=== PATIENT | female | born 1980 | race Caucasian/White ===

== ENCOUNTER 2017-10-19 17:13 | Emergency (ER) | payer SELFPAY ==
[~2017-10-19] VITALS: Ht 160 cm; Wt 70.3 kg
--- OUTSIDE RECORDS SUMMARY | 2017-10-19 17:19 | XMS REPORT ---
Author NIKKI Ch [facility] eClinicalWorks Address Unknown Phone Unavailable Care Team Providers Care Digital Cartographic Technician Name Role Phone NIKKI MATOS CP Unavailable Allergies No Known Allergies Problems Problem Type Condition Code Onset Dates Condition Status Problem Vaginal high risk HPV DNA test positive R87.811 Active Problem Anxiety associated with depression F41.8 Active Problem Hyperlipemia E78.5 Active Problem Tension headache G44.209 Active Problem Chronic maxillary sinusitis J32.0 Active Problem Arachnoid cyst G93.0 Active Problem Migraine G43.909 Active Problem Tobacco use Z72.0 Active Problem PTSD (post-traumatic stress disorder) F43.10 Active Problem Bronchitis J40 Active Problem Overweight E66.3 Active Problem Tobacco abuse counseling Z71.6 Active Problem Tobacco abuse Z72.0 Active Problem Dysfunctional uterine bleeding N93.8 Active Problem High cholesterol E78.0 Active Problem Cough R05 Active Problem Cervical high risk HPV (human papillomavirus) test positive R87.810 Active Medications No Known Medications Results No Known Results Summary Purpose eClinicalWorks Submission
--- OUTSIDE RECORDS SUMMARY | 2017-10-19 17:19 | XMS REPORT ---
Author Author NIKKI MATOS [facility] Address [address] [place] [address] Care Team Providers Care Field Service Technician Name Role Phone NIKKI MATOS Unavailable PROBLEMS Type Condition ICD9-CM Code [id number] Code Onset Dates Condition Status SNOMED Code Problem Hyperlipemia E78.5 Active 43228933 Problem Tobacco use Z72.0 Active 192288140 Problem Anxiety associated with depression F41.8 Active 482400238 Problem Chronic maxillary sinusitis J32.0 Active 35294513 Problem Tension headache G44.209 Active 612642533 Problem Bronchitis J40 Active 38327260 Problem Migraine G43.909 Active 64389790 Problem Arachnoid cyst G93.0 Active 37756861 Problem PTSD (post-traumatic stress disorder) F43.10 Active 61910438 Problem Overweight E66.3 Active 872026289 Problem Dysfunctional uterine bleeding N93.8 Active 44692238 Problem Tobacco abuse Z72.0 Active 87095455 Problem High cholesterol E78.0 Active 74429003 Problem Tobacco abuse counseling Z71.6 Active 181193376 Problem Cervical high risk HPV (human papillomavirus) test positive R87.810 Active 670920806 Problem Cough R05 Active 39929589 Problem Vaginal high risk HPV DNA test positive R87.811 Active 306651606 ALLERGIES Substance Reaction Event Type Date Status N.K.D.A. Unknown Non Drug Allergy Oct, Unknown SOCIAL HISTORY No smoking Hx information available PLAN OF CARE Activity Details Follow Up prn Reason: VITAL SIGNS Height 64.5 in 2016-11-18 Weight 164.6 lbs 2016-11-18 Temperature 97.6 degrees Fahrenheit 2016-11-18 Heart Rate 81 bpm 2016-11-18 Respiratory Rate 17 2016-11-18 BMI 27.81 kg/m2 2016-11-18 Blood pressure systolic 108 mmHg 2016-11-18 Blood pressure diastolic 60 mmHg 2016-11-18 MEDICATIONS Medication Instructions Dosage Frequency Start Date End Date Duration Status Fioricet 50-300-40 MG Orally every 4 hrs as needed for headaches 1 capsule as needed Jun, Active Proventil HFA 108 (90 Base) MCG/ACT Inhalation every 4 hrs 2 puffs as needed 4h Oct, Active Depo-Provera 150 MG/ML Active Claritin 10 MG Orally Once a day 1 tablet 24h Active Prozac 40 MG Orally Once a day 1 capsule in the morning 24h Active Amitriptyline HCl 25 MG Orally Once a day- bedtime 1 tablet Dec, Active Ibuprofen 800 MG Orally up to three times daily 1 tablet Jan, Active Simvastatin 40 mg Orally Once a day 1 tablet in the evening 24h Oct, Active RESULTS Name Result Date Reference Range INFLUENZA A & B (IN HOUSE) INFLUENZA A neg INFLUENZA B neg Control + Lot # [id number] Exp date 03/2018 PROCEDURES Procedure Date Ordered Related Diagnosis Body Site INFLUENZA ASSAY W/OPTIC Nov 18, 2016 Office Visit, Est Pt., Level 3 Nov 18, 2016 IMMUNIZATIONS No Known Immunizations
--- OUTSIDE RECORDS SUMMARY | 2017-10-19 17:19 | XMS REPORT ---
Author NIKKI Ch [facility] eClinicalWorks Address Unknown Phone Unavailable Care Team Providers Care Paragliding Instructor Name Role Phone NIKKI MATOS CP Unavailable Allergies, Adverse Reactions, Alerts Substance Reaction Event Type N.K.D.A. Info Not Available Non Drug Allergy Problems Problem Type Condition Code Onset Dates Condition Status Problem Overweight E66.3 Active Assessment Dysfunctional uterine bleeding N93.8 Active Problem Dysfunctional uterine bleeding N93.8 Active Assessment Overweight E66.3 Active Medications Medication Code System Code Instructions Start Date End Date Status Dosage Depo-Provera [facility] [address]-37 150 MG/ML Intramuscular every 3 months Sep 13, 2015 1 ml Procedures Procedure Coding System Code Date Office Visit, Est Pt., Level 3 CPT-4 60782 Sep 11, 2015 Vital Signs Date/Time: Sep 11, 2015 Temperature 98.1 F Weight 171.3 lbs Height 64.5 in BMI 28.95 Index Blood Pressure Diastolic 82 mmHg Blood Pressure Systolic 110 mmHg Cardiac Monitoring Heart Rate 85 bpm Results No Known Results Summary Purpose eClinicalWorks Submission
--- OUTSIDE RECORDS SUMMARY | 2017-10-19 17:19 | XMS REPORT ---
Author ZEESHAN Spicer Organization eClinicalWorks Address Unknown Phone Unavailable Care Team Providers Care Wood Box Maker Name Role Phone ZEESHAN SCHMID CP Unavailable Allergies, Adverse Reactions, Alerts Substance Reaction Event Type N.K.D.A. Info Not Available Non Drug Allergy Problems Problem Type Condition Code Onset Dates Condition Status Problem Overweight E66.3 Active Assessment Back pain M54.9 Active Problem Dysfunctional uterine bleeding N93.8 Active Assessment Cough R05 Active Assessment Tobacco dependence F17.200 Active Medications Medication Code System Code Instructions Start Date End Date Status Dosage Azithromycin [facility] [address]-25 250 MG Orally Once a day Nov 10, 2015 Nov 15, 2015 2 tablets on the first day, then 1 tablet daily for 4 days Procedures Procedure Coding System Code Date Office Visit, Est Pt., Level 3 CPT-4 17015 Nov 10, 2015 Vital Signs Date/Time: Nov 10, 2015 Temperature 98.5 F Weight 169.0 lbs Height 64.5 in BMI 28.56 Index Blood Pressure Diastolic 88 mmHg Blood Pressure Systolic 122 mmHg Cardiac Monitoring Heart Rate 103 bpm Results No Known Results Summary Purpose eClinicalWorks Submission
--- OUTSIDE RECORDS SUMMARY | 2017-10-19 17:19 | XMS REPORT ---
Author Author PEDRO GRAHAM Organization eClinicalWorks Address Unknown Phone Unavailable Care Team Providers Care Compounding Scaler Name Role Phone PEDRO GRAHAM CP Unavailable Allergies No Known Allergies Problems Problem Type Condition Code Onset Dates Condition Status Problem Tobacco abuse Z72.0 Active Problem Tobacco abuse counseling Z71.6 Active Problem High cholesterol E78.0 Active Problem Overweight E66.3 Active Problem Cough R05 Active Problem Dysfunctional uterine bleeding N93.8 Active Medications No Known Medications Results No Known Results Summary Purpose eClinicalWorks Submission
--- OUTSIDE RECORDS SUMMARY | 2017-10-19 17:19 | XMS REPORT ---
Author NIKKI Ch eClinicalWorks Address Unknown Phone Unavailable Care Team Providers Care Die Out Worker Name Role Phone NIKKI MATOS CP Unavailable Allergies, Adverse Reactions, Alerts Substance Reaction Event Type N.K.D.A. Info Not Available Non Drug Allergy Problems Problem Type Condition Code Onset Dates Condition Status Problem Tobacco abuse counseling Z71.6 Active Problem High cholesterol E78.0 Active Problem Tobacco abuse Z72.0 Active Problem Migraine G43.909 Active Problem Tobacco use Z72.0 Active Problem Bronchitis J40 Active Problem Vaginal high risk HPV DNA test positive R87.811 Active Problem Cervical high risk HPV (human papillomavirus) test positive R87.810 Active Problem Anxiety associated with depression F41.8 Active Problem Hyperlipemia E78.5 Active Assessment Migraine G43.909 Active Problem Overweight E66.3 Active Problem Dysfunctional uterine bleeding N93.8 Active Assessment Adverse effect of caffeine T43.615A Active Problem Cough R05 Active Medications Medication Code System Code Instructions Start Date End Date Status Dosage Ibuprofen [facility] [address]-15 800 MG Orally up to three times daily January 1 tablet Paradise Allergy [facility] [address]99 180 MG Orally not defined Amitriptyline HCl [facility] [address]-22 25 MG Orally Once a day- bedtime January 05, 2016 1 tablet Simvastatin [facility] [address]-02 40 MG Orally Once a day Nov 24, 2015 1 tablet in the evening Prozac [facility] [address]-99 20 mg Orally Once a day 1 capsule in the morning Proventil HFA [facility] [address]-32 108 (90 Base) MCG/ACT Inhalation every 4 hrs Nov 18, 2015 2 puffs as needed Procedures Procedure Coding System Code Date THER/PROPH/DIAG INJ, SC/IM CPT-4 18940 February 08, 2016 Office Visit, Est Pt., Level 3 CPT-4 73049 February 08, 2016 TORADOL (IM) 15 MG/ML (UP TO 15 MG) CPT-4 J1885 February 08, 2016 Vital Signs Date/Time: February 08, 2016 Temperature 98.0 F Weight 173.2 lbs Height 64.5 in BMI 29.27 Index Blood Pressure Diastolic 60 mmHg Blood Pressure Systolic 118 mmHg Cardiac Monitoring Heart Rate 72 bpm Results No Known Results Summary Purpose eClinicalWorks Submission
--- OUTSIDE RECORDS SUMMARY | 2017-10-19 17:19 | XMS REPORT ---
Author [facility] Address [address] [place] [address] Care Team Providers Care Box Maker Name Role Phone MALKA AMOS Unavailable PROBLEMS Type Condition ICD9-CM Code [id number] Code Onset Dates Condition Status SNOMED Code Problem Tobacco abuse Z72.0 Active 48336163 Problem Cervical high risk HPV (human papillomavirus) test positive R87.810 Active 609997797 Problem High cholesterol E78.0 Active 37570470 Problem Bronchitis J40 Active 99349328 Problem Migraine G43.909 Active 51471827 Problem Hyperlipemia E78.5 Active 37233641 Problem Vaginal high risk HPV DNA test positive R87.811 Active 387497489 Problem Tobacco use Z72.0 Active 038211938 Problem Anxiety associated with depression F41.8 Active 469317691 Problem Overweight E66.3 Active 980318688 Problem Dysfunctional uterine bleeding N93.8 Active 52473551 Problem Cough R05 Active 55581713 Assessment Migraine without aura and with status migrainosus, not intractable G43.001 Jun, Active 900241405 Problem Tobacco abuse counseling Z71.6 Active 719396804 ALLERGIES Substance Reaction Event Type Date Status N.K.D.A. Unknown Non Drug Allergy Jun, Unknown SOCIAL HISTORY No smoking Hx information available PLAN OF CARE VITAL SIGNS Height 64.5 in 2016-07-04 Weight 168.1 lbs 2016-07-04 Heart Rate 75 bpm 2016-07-04 Respiratory Rate 16 2016-07-04 BMI 28.41 kg/m2 2016-07-04 Blood pressure systolic 122 mmHg 2016-07-04 Blood pressure diastolic 70 mmHg 2016-07-04 MEDICATIONS Medication Instructions Dosage Frequency Start Date End Date Duration Status Amitriptyline HCl 25 MG Orally Once a day- bedtime 1 tablet Dec, Active Prozac 20 mg Orally Once a day 1 capsule in the morning 24h Active Fioricet 50-300-40 MG Orally every 4 hrs as needed for headaches 1 capsule as needed Jun, Active Simvastatin 40 mg Orally Once a day 1 tablet in the evening 24h Oct, Active Zomig 5 mg Orally Once a day- do not exceed 10mg in 24hours 1 tablet as needed one time Dec, Active Proventil HFA 108 (90 Base) MCG/ACT Inhalation every 4 hrs 2 puffs as needed 4h Oct, Active Paradise Allergy 180 MG Active Ibuprofen 800 MG Orally up to three times daily 1 tablet Jan, Active RESULTS No Results PROCEDURES Procedure Date Ordered Related Diagnosis Body Site Office Visit, Est Pt., Level 3 Jul 04, 2016 PHENERGAN (IM) 25 MG (25 MG/ML) Jul 04, 2016 TORADOL (IM) 60 MG/2ML (UP TO 15 MG) Jul 04, 2016 THER/PROPH/DIAG INJ, SC/IM Jul 04, 2016 IMMUNIZATIONS Vaccine Route Administration Date Status TORADOL (IM) 60 MG/2ML (UP TO 15 MG) IM Intramuscular Jul 04, 2016 Administered PHENERGAN (IM) 25 MG (25 MG/ML) IM Intramuscular Jul 04, 2016 Administered
--- OUTSIDE RECORDS SUMMARY | 2017-10-19 17:19 | XMS REPORT ---
Author Author NIKKI MATOS [facility] Address [address] [place] [address] Care Team Providers Care Financial Reserve Clerk Name Role Phone NIKKI MATOS Unavailable PROBLEMS Type Condition ICD9-CM Code [id number] Code Onset Dates Condition Status SNOMED Code Problem Hyperlipemia E78.5 Active 46890595 Problem Tobacco use Z72.0 Active 913200432 Problem Anxiety associated with depression F41.8 Active 257303187 Problem Arachnoid cyst G93.0 Active 41384770 Problem Tension headache G44.209 Active 554911186 Problem Bronchitis J40 Active 37315126 Problem Migraine G43.909 Active 65268090 Problem Chronic maxillary sinusitis J32.0 Active 82973346 Problem PTSD (post-traumatic stress disorder) F43.10 Active 21438915 Problem Overweight E66.3 Active 119808851 Problem Dysfunctional uterine bleeding N93.8 Active 06357870 Problem Tobacco abuse Z72.0 Active 82014062 Problem High cholesterol E78.0 Active 72603168 Problem Cough R05 Active 28096299 Problem Cervical high risk HPV (human papillomavirus) test positive R87.810 Active 366263162 Problem Tobacco abuse counseling Z71.6 Active 966613674 Problem Vaginal high risk HPV DNA test positive R87.811 Active 281125184 ALLERGIES Unknown Allergies SOCIAL HISTORY No smoking Hx information available PLAN OF CARE VITAL SIGNS MEDICATIONS Unknown Medications RESULTS No Results PROCEDURES No Known procedures IMMUNIZATIONS No Known Immunizations
--- OUTSIDE RECORDS SUMMARY | 2017-10-19 17:20 | XMS REPORT ---
Author ZEESHAN Spicer Organization eClinicalWorks Address Unknown Phone Unavailable Care Team Providers Care Sales Representative Jewelry Name Role Phone ZEESHAN SCHMID CP Unavailable Allergies No Known Allergies Problems Problem Type Condition Code Onset Dates Condition Status Assessment Dysfunctional uterine bleeding N93.8 Active Medications No Known Medications Procedures Procedure Coding System Code Date VENIPUNCT, ROUTINE* CPT-4 65832 Aug 15, 2015 COMPLETE CBC W/AUTO DIFF WBC CPT-4 54771 Aug 15, 2015 Results Name Result Date Reference Range Unit Abnormality Flag CBC Summary Purpose eClinicalWorks Submission
--- OUTSIDE RECORDS SUMMARY | 2017-10-19 17:20 | XMS REPORT ---
Author NIKKI Ch eClinicalWorks Address Unknown Phone Unavailable Care Team Providers Care Fabricator Special Items Name Role Phone NIKKI MATOS CP Unavailable Allergies, Adverse Reactions, Alerts Substance Reaction Event Type N.K.D.A. Info Not Available Non Drug Allergy Problems Problem Type Condition Code Onset Dates Condition Status Problem Vaginal high risk HPV DNA test positive R87.811 Active Problem Anxiety associated with depression F41.8 Active Problem Hyperlipemia E78.5 Active Problem Tension headache G44.209 Active Assessment Tension headache G44.209 Active Problem Chronic maxillary sinusitis J32.0 Active Assessment Chronic maxillary sinusitis J32.0 Active Problem Arachnoid cyst G93.0 Active Problem Migraine G43.909 Active Problem Tobacco use Z72.0 Active Problem PTSD (post-traumatic stress disorder) F43.10 Active Problem Bronchitis J40 Active Assessment Anxiety associated with depression F41.8 Active Problem Overweight E66.3 Active Assessment Arachnoid cyst G93.0 Active Assessment Hyperlipemia E78.5 Active Problem Tobacco abuse counseling Z71.6 Active Problem Tobacco abuse Z72.0 Active Problem Dysfunctional uterine bleeding N93.8 Active Problem High cholesterol E78.0 Active Problem Cough R05 Active Problem Cervical high risk HPV (human papillomavirus) test positive R87.810 Active Medications Medication Code System Code Instructions Start Date End Date Status Dosage Claritin [facility] [address]-67 10 MG Orally Once a day 1 tablet Fioricet [facility] [address]-76 50-300-40 MG Orally every 4 hrs as needed for headaches Jul 04, 2016 1 capsule as needed Prozac [facility] [address]-73 20 mg Orally Once a day 1 capsule in the morning Ibuprofen [facility] [address]-41 800 MG Orally up to three times daily January 1 tablet Amitriptyline HCl [facility] [address]-33 25 MG Orally Once a day- bedtime January 05, 2016 1 tablet Imitrex [facility] [address]-47 100 MG Orally take one tablet for severe migraine , may repeat x1 in an hour Sep 03, 2016 1 tablet Simvastatin [facility] [address]-16 40 mg Orally Once a day Nov 24, 2015 1 tablet in the evening Proventil HFA [facility] [address]-44 108 (90 Base) MCG/ACT Inhalation every 4 hrs Nov 18, 2015 2 puffs as needed Augmentin [facility] [address]-37 875-125 MG Orally every 12 hrs Sep 03, 2016 Sep 13, 2016 1 tablet Procedures Procedure Coding System Code Date Office Visit, Est Pt., Level 4 CPT-4 70784 Sep 03, 2016 Vital Signs Date/Time: Sep 03, 2016 Cardiac Monitoring Heart Rate 88 bpm Weight 160.6 lbs Height 64.5 in BMI 27.14 Index Blood Pressure Diastolic 70 mmHg Blood Pressure Systolic 110 mmHg Results No Known Results Summary Purpose eClinicalWorks Submission
--- OUTSIDE RECORDS SUMMARY | 2017-10-19 17:20 | XMS REPORT ---
Author ZEESHAN Spicer Organization eClinicalWorks Address Unknown Phone Unavailable Care Team Providers Care Bottom Precipitator Operator Name Role Phone ZEESHAN SCHMID CP Unavailable Allergies, Adverse Reactions, Alerts Substance Reaction Event Type N.K.D.A. Info Not Available Non Drug Allergy Problems Problem Type Condition Code Onset Dates Condition Status Assessment Dysfunctional uterine bleeding N93.8 Active Assessment Pelvic pain in female R10.2 Active Medications Medication Code System Code Instructions Start Date End Date Status Dosage Provera [facility] [address]-54 20 mg Orally Once a day Aug 11, 2015 Aug 16, 2015 1 tablet Procedures Procedure Coding System Code Date Office Visit, Est Pt., Level 3 CPT-4 19052 Aug 11, 2015 Vital Signs Date/Time: Aug 11, 2015 Temperature 98.7 F Weight 169.1 lbs Height 64.5 in BMI 28.57 Index Blood Pressure Diastolic 84 mmHg Blood Pressure Systolic 118 mmHg Cardiac Monitoring Heart Rate 83 bpm Results No Known Results Summary Purpose eClinicalWorks Submission
--- OUTSIDE RECORDS SUMMARY | 2017-10-19 17:20 | XMS REPORT ---
Author NIKKI Ch Organization eClinicalWorks Address Unknown Phone Unavailable Care Team Providers Care Rn Neonatal Name Role Phone NIKKI MATOS CP Unavailable Allergies No Known Allergies Problems Problem Type Condition Code Onset Dates Condition Status Problem Tobacco abuse Z72.0 Active Problem Tobacco abuse counseling Z71.6 Active Problem High cholesterol E78.0 Active Problem Overweight E66.3 Active Assessment High cholesterol E78.0 Active Problem Cough R05 Active Problem Dysfunctional uterine bleeding N93.8 Active Medications Medication Code System Code Instructions Start Date End Date Status Dosage Simvastatin [facility] [address]-55 40 MG Orally Once a day Nov 24, 2015 1 tablet in the evening Results No Known Results Summary Purpose eClinicalWorks Submission
--- OUTSIDE RECORDS SUMMARY | 2017-10-19 17:20 | XMS REPORT ---
Author NIKKI Ch [facility] eClinicalWorks Address Unknown Phone Unavailable Care Team Providers Care Speeder Machine Operator Name Role Phone NIKKI MATOS CP Unavailable [...] F43.10 Active Problem Bronchitis J40 Active Assessment Migraine G43.909 Active Problem Overweight E66.3 Active Assessment Arachnoid cyst G93.0 Active Problem Tobacco abuse counseling Z71.6 Active Problem Tobacco abuse Z72.0 Active Problem Dysfunctional uterine bleeding N93.8 Active Problem High cholesterol E78.0 Active Problem Cough R05 Active Problem Cervical high risk HPV (human papillomavirus) test positive R87.810 Active Medications No Known Medications Results No Known Results Summary Purpose eClinicalWorks Submission
--- OUTSIDE RECORDS SUMMARY | 2017-10-19 17:20 | XMS REPORT ---
Author Author NIKKI MATOS [facility] Address [address] [place] [address] Care Team Providers Care Gray Mixing Operator Name Role Phone NIKKI MATOS Unavailable PROBLEMS Type Condition ICD9-CM Code [id number] Code Onset Dates Condition Status SNOMED Code Problem Hyperlipemia E78.5 Active 03964214 Problem Tobacco use Z72.0 Active 473098058 Problem Anxiety associated with depression F41.8 Active 151530605 Problem Arachnoid cyst G93.0 Active 29425849 Problem Tension headache G44.209 Active 936266979 Problem Bronchitis J40 Active 93664000 Problem Migraine G43.909 Active 13558495 Problem Chronic maxillary sinusitis J32.0 Active 79994427 Problem PTSD (post-traumatic stress disorder) F43.10 Active 30003900 Problem Overweight E66.3 Active 704882598 Problem Dysfunctional uterine bleeding N93.8 Active 97242728 Problem Tobacco abuse Z72.0 Active 78867379 Problem High cholesterol E78.0 Active 27137726 Problem Cough R05 Active 34897609 Problem Cervical high risk HPV (human papillomavirus) test positive R87.810 Active 920383956 Problem Tobacco abuse counseling Z71.6 Active 239332526 Problem Vaginal high risk HPV DNA test positive R87.811 Active 288821827 ALLERGIES Unknown Allergies SOCIAL HISTORY No smoking Hx information available PLAN OF CARE VITAL SIGNS MEDICATIONS Unknown Medications RESULTS No Results PROCEDURES No Known procedures IMMUNIZATIONS No Known Immunizations
--- OUTSIDE RECORDS SUMMARY | 2017-10-19 17:20 | XMS REPORT ---
Author NIKKI Ch eClinicalWorks Address Unknown Phone Unavailable Care Team Providers Care Route Agent Name Role Phone NIKKI MATOS CP Unavailable [...] F41.8 Active Problem Hyperlipemia E78.5 Active Assessment Urinary tract infection, site unspecified N39.0 Active Problem Overweight E66.3 Active Problem Dysfunctional uterine bleeding N93.8 Active Assessment Lung nodule seen on imaging study R91.1 Active Problem Cough R05 Active Medications Medication Code System Code Instructions Start Date End Date Status Dosage Ibuprofen [facility] [address]-02 800 MG Orally up to three times daily January 1 tablet Simvastatin [facility] [address]-49 40 mg Orally Once a day Nov 24, 2015 1 tablet in the evening Prozac [facility] [address]-52 20 mg Orally Once a day 1 capsule in the morning Amitriptyline HCl [facility] [address]-35 25 MG Orally Once a day- bedtime January 05, 2016 1 tablet Bactrim DS [facility] [address]-91 800-160 MG Orally Twice a day May 20, 2016 May 30, 2016 1 tablet Procedures Procedure Coding System Code Date URINALYSIS, AUTO, W/O SCOPE CPT-4 43645 May 20, 2016 Office Visit, Est Pt., Level 3 CPT-4 86391 May 20, 2016 URINE CULTURE/COLONY COUNT CPT-4 92958 May 20, 2016 Vital Signs Date/Time: May 20, 2016 Cardiac Monitoring Heart Rate 63 bpm Weight 168.5 lbs Height 64.5 in Blood Pressure Diastolic 78 mmHg Blood Pressure Systolic 118 mmHg Results No Known Results Summary Purpose eClinicalWorks Submission
--- OUTSIDE RECORDS SUMMARY | 2017-10-19 17:20 | XMS REPORT ---
Author NIKKI Ch [facility] eClinicalWorks Address Unknown Phone Unavailable Care Team Providers Care Metallography Teacher Name Role Phone NIKKI MATOS CP Unavailable Allergies, Adverse Reactions, Alerts Substance Reaction Event Type N.K.D.A. Info Not Available Non Drug Allergy Problems Problem Type Condition Code Onset Dates Condition Status Assessment Tobacco abuse counseling Z71.6 Active Problem Tobacco abuse counseling Z71.6 Active Problem Cough R05 Active Problem Tobacco abuse Z72.0 Active Assessment Cough R05 Active Assessment Tobacco abuse Z72.0 Active Problem Dysfunctional uterine bleeding N93.8 Active Problem Overweight E66.3 Active Medications Medication Code System Code Instructions Start Date End Date Status Dosage Tesnatan Aviles [facility] [address]-52 100 MG Orally Three times a day Nov 18, 2015 Nov 25, 2015 1 capsule as needed [facility] [address]66 180 MG Orally not defined Proventil HFA [facility] [address]-29 108 (90 Base) MCG/ACT Inhalation every 4 hrs Nov 18, 2015 2 puffs as needed Procedures Procedure Coding System Code Date Office Visit, Est Pt., Level 3 CPT-4 22424 Nov 18, 2015 MEASURE BLOOD OXYGEN LEVEL CPT-4 19105 Nov 18, 2015 Vital Signs Date/Time: Nov 18, 2015 Temperature 98.6 F Weight 172.0 lbs Height 64.5 in Oximetry 99 % Blood Pressure Diastolic 86 mmHg Blood Pressure Systolic 110 mmHg Cardiac Monitoring Heart Rate 88 bpm BMI 29.06 Index Results No Known Results Summary Purpose eClinicalWorks Submission
--- OUTSIDE RECORDS SUMMARY | 2017-10-19 17:20 | XMS REPORT ---
Author Author NIKKI MATOS [facility] Address [address] [place] [address] Care Team Providers Care Weigh Boss Name Role Phone NIKKI MATOS Unavailable PROBLEMS Type Condition ICD9-CM Code LTG90-TZ Code Onset Dates Condition Status SNOMED Code Problem Hyperlipemia E78.5 Active 71517868 Problem Tobacco use Z72.0 Active 872393212 Problem Anxiety associated with depression F41.8 Active 946861433 Problem Arachnoid cyst G93.0 Active 97911060 Problem Tension headache G44.209 Active 185047572 Problem Bronchitis J40 Active 66655308 Problem Migraine G43.909 Active 84892971 Problem Chronic maxillary sinusitis J32.0 Active 10946007 Problem PTSD (post-traumatic stress disorder) F43.10 Active 88924040 Problem Overweight E66.3 Active 754778374 Problem Dysfunctional uterine bleeding N93.8 Active 76384561 Problem Tobacco abuse Z72.0 Active 61688943 Problem High cholesterol E78.0 Active 71852610 Problem Cough R05 Active 85711017 Problem Cervical high risk HPV (human papillomavirus) test positive R87.810 Active 566585414 Problem Tobacco abuse counseling Z71.6 Active 431955938 Problem Vaginal high risk HPV DNA test positive R87.811 Active 276864772 ALLERGIES Unknown Allergies SOCIAL HISTORY No smoking Hx information available PLAN OF CARE VITAL SIGNS MEDICATIONS Unknown Medications RESULTS No Results PROCEDURES No Known procedures IMMUNIZATIONS No Known Immunizations
--- OUTSIDE RECORDS SUMMARY | 2017-10-19 17:20 | XMS REPORT ---
Author Author PEDRO GRAHAM Organization eClinicalWorks Address Unknown Phone Unavailable Care Team Providers Care Structural Fitter Name Role Phone PEDRO GRAHAM CP Unavailable Allergies, Adverse Reactions, Alerts Substance Reaction Event Type N.K.D.A. Info Not Available Non Drug Allergy Problems Problem Type Condition ICD-9 Code Onset Dates Condition Status Assessment Abdominal pain 789.00 Active Medications Medication Code System Code Instructions Start Date End Date Status Dosage Cyclobenzaprine HCl [facility] [address]-76 10 MG Orally 3 times a day Jul 19, 2015 Jul 29, 2015 1 tablet Procedures Procedure Coding System Code Date Office Visit, Est Pt., Level 3 CPT-4 47933 Jul 19, 2015 Vital Signs Date/Time: Jul 19, 2015 Temperature 98.6 F Weight 167.6 lbs Height 64.5 in BMI 28.32 Index Blood Pressure Diastolic 78 mmHg Blood Pressure Systolic 120 mmHg Cardiac Monitoring Heart Rate 72 bpm Results No Known Results Summary Purpose eClinicalWorks Submission
[2017-10-19] MEDS ORDERED: NS IV 1000 ML 1,000 ML IV ONE (19:24)
[2017-10-19] MEDS ORDERED: diphenhydrAMINE 50 MG/ML INJ (BENADRYL) IVP ONE (19:30)
[2017-10-19] MEDS ORDERED: PROMETHAZINE INJ 25 MG/ML (PHENERGAN) AMP IVP ONE (19:30)
[2017-10-19] MEDS ORDERED: KETOROLAC 30 MG/ML VIAL IVP ONE (19:30)
--- NOTE | 2017-10-19 20:46 | ED Headache ---
General Chief Complaint: Head/Cervical Problems Stated Complaint: MIGRAINE Nursing Triage Note: c/o headache. Onset last night. Reports nausea and blurry vission. States these are typical symptoms of her migraine MAGAÑA. Nursing Sepsis Screen: No Definite Risk Allergies and Home Medications Allergies Coded Allergies: No Known Drug Allergies (Unverified , 10/19/17) Home Medications No Active Prescriptions or Reported Meds Past Mdsdmfm-Ifujtq-Oaeeqe Hx Patient Social History Alcohol Use: Denies Use Recreational Drug Use: No Smoking Status: Unknown if Ever Smoked Recent Foreign Travel: No Contact w/Someone Who Travel: No Recent Infectious Disease Expo: No Surgeries History of Surgeries: Yes Surgeries: Tubal Ligation Respiratory History of Respiratory Disorde: No Cardiovascular History of Cardiac Disorders: No Neurological History of Neurological Disord: Yes (brain cyst) Genitourinary History of Genitourinary Disor: No Gastrointestinal History of Gastrointestinal Di: No Musculoskeletal History of Musculoskeletal Dis: Yes Musculoskeletal Disorders: Degenerate Disk Disease, Scoliosis Endocrine History of Endocrine Disorders: No HEENT History of HEENT Disorders: No Cancer History of Cancer: No Psychosocial History of Psychiatric Problem: No Integumentary History of Skin or Integumenta: No Physical Exam Vital Signs Vital Sign - Last 12Hours 10/19/17 19:29 Temp 98.1 Pulse 70 Resp 16 B/P (MAP) 119/79 (92) Pulse Ox 99 Capillary Refill : Less Than 3 Seconds Progress/Results/Core Measures Results/Orders My Orders Orders - JEM BOWERS MD Saline Lock/Iv-Start (10/19/17 19:24) Ns Iv 1000 Ml (Sodium Chloride 0.9%) (10/19/17 19:24) Ketorolac Injection (Toradol Injection) (10/19/17 19:30) Promethazine Injection (Phenergan Injec (10/19/17 19:30) Diphenhydramine Injection (Benadryl Inje (10/19/17 19:30) Medications Given in ED Current Medications Medications Dose Ordered Sig/Chelsie Route Start Time Stop Time Status Last Admin Dose Admin Diphenhydramine HCl 25 mg ONCE ONCE IVP 10/19/17 19:30 10/19/17 19:31 DC 10/19/17 19:55 25 MG Ketorolac Tromethamine 30 mg ONCE ONCE IVP 10/19/17 19:30 10/19/17 19:31 DC 10/19/17 19:55 30 MG Promethazine HCl 25 mg ONCE ONCE IVP 10/19/17 19:30 10/19/17 19:31 DC 10/19/17 19:55 25 MG Sodium Chloride 1,000 ml @ 0 mls/hr Q0M ONCE IV 10/19/17 19:24 10/19/17 19:26 DC 10/19/17 19:56 1,000 MLS/HR Vital Signs/I&O Vital Sign - Last 12Hours 10/19/17 10/19/17 19:29 19:55 Temp 98.1 98.1 Pulse 70 Resp 16 B/P (MAP) 119/79 (92) Pulse Ox 99 Blood Pressure Mean: 92 Departure Impression Impression: Primary Impression: Migraine Qualified Codes: G43.109 - Migraine with aura, not intractable, without status migrainosus Disposition: 01 HOME, SELF-CARE Condition: Improved Departure-Patient Inst. Decision time for Depature: 20:45 Referrals: NO,LOCAL PHYSICIAN (PCP/Family) Primary Care Physician Patient Instructions: Migraine Headache (DC) Add. Discharge Instructions: Drink plenty of clear liquids. Rest in a quiet, calm, dark environment for the remainder of the evening. You may take ibuprofen up to 600 mg every 6 hours as needed for pain. Add Tylenol (acetaminophen) up to 1000 g every 6 hours as needed for additional pain relief return to care if symptoms worsen again. All discharge instructions reviewed with patient and/or family. Voiced understanding. Scripts No Active Prescriptions or Reported Meds JEM BOWERS MD Oct 19, 2017 20:46
[2017-10-19 20:53] VITALS: BP 118/72
== END 2017-10-19 20:53 | disposition home or self-care (01) ==
LOC: ER 17:16
DX: G43.909 Migraine, unspecified, not intractable, without status migrainosus (principal); Z98.51 Tubal ligation status
CPT/HCPCS: 99282

== ENCOUNTER 2018-11-28 19:05 | Emergency (ER) | payer SELFPAY ==
[~2018-11-28] VITALS: Ht 162.6 cm; Wt 83.5 kg
--- NOTE | 2018-11-28 20:26 | ED Headache ---
General Chief Complaint: Head/Cervical Problems Stated Complaint: MIGRAINE Source: patient History of Present Illness Date Seen by Provider: Nov 28, 2018 Time Seen by Provider: 20:05 Initial Comments C/O HEADACHE SINCE Friday11/26/18 PAIN IS IN LEFT OCCIPITAL AREA NOTHING WORSENS OR IMPROVES HEADACHE NO VISION CHANGES NO PARESTHESIAS OR MOTOR DEFICITS + NAUSEA, NO VOMITING HAS HAD HEADACHES FOR YEARS, AND THIS IS EXACTLY THE SAME HEADACHES SHE HAS HAD IN THE PAST--STATES SHE HAS HEADACHES THIS BAD THAT SHE COMES TO ER FOR AT LEAST ONCE A MONTH, HAS MILDER HEADACHES 1-2 TIMES A WEEK HAS TRIED "HEADACHE PM, HEADACHE RELIEF, IBUPROFEN IB" WITH OUT RELIEF. TOOK 1 HEADACHE RELIEF PILL AT 1330 TODAY WITHOUT RELIEF. HAS NOT TAKEN ANYTHING ELSE TODAY FOR HEADACHE LMP 10/27/18. S/P BTL PCP: Ursula JOSE, [facility]. SEEN A COUPLE OF WEEKS AGO FOR ROUTINE EXAM. PT STATES "I'M TRYING TO GET RE-ESTABLISHED TO GET BACK ON MY MEDICINES" STATES SHE HAS BEEN ON AMITRIPTYLINE AND FIORCET IN THE PAST FOR HEADACHES, BUT HAS BEEN OUT FOR ABOUT A MONTH STATES SHE WAS GIVEN RX FOR PROZAC AT HER APPOINTMENT 2 WEEKS AGO HAS FOLLOW UP APPOINTMENT 12/11/18. 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 Allergies and Home Medications Allergies Coded Allergies: No Known Drug Allergies (Unverified , 10/19/17) Home Medications No Active Prescriptions or Reported Meds Patient Home Medication List Home Medication List Reviewed: Yes Review of Systems Review of Systems Constitutional: no symptoms reported Eyes: No Symptoms Reported Ears, Nose, Mouth, Throat: no symptoms reported Respiratory: no symptoms reported Cardiovascular: no symptoms reported Gastrointestinal: no symptoms reported Genitourinary: no symptoms reported : No LMP: Oct 27, 2018 Musculoskeletal: neck pain Skin: no symptoms reported Psychiatric/Neurological: See HPI, Headache; Denies Numbness, Denies Paresthesia, Denies Seizure, Denies Tingling, Denies Tremors, Denies Weakness Past Qihfodv-Lzwetw-Rdwmrq Hx Patient Social History Alcohol Use: Denies Use Recreational Drug Use: Yes (THC TEEN) Smoking Status: Current Everyday Smoker (1 1/2 PPD) Type Used: Cigarettes Recent Foreign Travel: No Contact w/Someone Who Travel: No Past Medical History Surgeries: Yes (UMBILICAL HERNIA REPAIR) Abdominal, Tubal Ligation Respiratory: No Cardiac: No Neurological: Yes ("BRAIN CYST" DX IN 2015--NO SURGERY; "STRESS SEIZURES" SINCE PRE-ADOLESCENCE--NONE FOR LONG TIME) Headaches /Migraines, Seizure Disorder Reproductive Disorders: Yes (ADENOMYOSIS, PER PT) 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 oz. 70.619995nn; BMI Method:Stated General Appearance: WD/WN, no apparent distress HEENT: PERRL/EOMI, normal ENT inspection Neck: full range of motion, supple, tender lateral (TENDERNESS AND MILD MUSCLE SPASMS LEFT LATERAL CERVICAL PARAVERTEBRAL MUSCLES AND LEFT OCCIPITAL RIDGE) Cardiovascular: regular rate, rhythm, no murmur Respiratory: normal breath sounds, no respiratory distress Gastrointestinal: soft Back: normal inspection Extremities: normal inspection, normal capillary refill Psychiatric: alert, oriented x 3 Crainal Nerves: normal hearing, normal speech, PERRL Coordination/Gait: normal gait Motor/Sensory: no motor deficit, no sensory deficit Skin: normal color, warm/dry Progress/Results/Core Measures Results/Orders Lab Results Laboratory Tests Test 11/28/18 20:34 Range/Units Urine Opiates Screen NEGATIVE NEGATIVE Urine Oxycodone Screen NEGATIVE NEGATIVE Urine Methadone Screen NEGATIVE NEGATIVE Urine Propoxyphene Screen NEGATIVE NEGATIVE Urine Barbiturates Screen NEGATIVE NEGATIVE Ur Tricyclic Antidepressants Screen NEGATIVE NEGATIVE Urine Phencyclidine Screen NEGATIVE NEGATIVE Urine Amphetamines Screen NEGATIVE NEGATIVE Urine Methamphetamines Screen NEGATIVE NEGATIVE Urine Benzodiazepines Screen NEGATIVE NEGATIVE Urine Cocaine Screen NEGATIVE NEGATIVE Urine Cannabinoids Screen NEGATIVE NEGATIVE My Orders Orders - LUIS VAZQUEZ DO Drug Screen Stat (Urine) (11/28/18 20:16) Urine Bedside (11/28/18 20:16) Ketorolac Injection (Toradol Injection) (11/28/18 21:00) Orphenadrine Injection (Norflex Injectio (11/28/18 21:00) Diphenhydramine Injection (Benadryl Inje (11/28/18 21:00) Ondansetron Oral Dissolve Tab (Zofran (11/28/18 21:30) Medications Given in ED Current Medications Medications Dose Ordered Sig/Chelsie Route Start Time Stop Time Status Last Admin Dose Admin Diphenhydramine HCl 50 mg ONCE ONCE IM 11/28/18 21:00 11/28/18 21:01 DC 11/28/18 21:11 50 MG Ketorolac Tromethamine 60 mg ONCE ONCE IM 11/28/18 21:00 11/28/18 21:01 DC 11/28/18 21:12 60 MG Ondansetron HCl 4 mg ONCE ONCE PO 11/28/18 21:30 11/28/18 21:31 DC 11/28/18 21:22 4 MG Orphenadrine Citrate 60 mg ONCE ONCE IM 11/28/18 21:00 11/28/18 21:01 DC 11/28/18 21:10 60 MG Vital Signs/I&O 11/28/18 20:20 Temp 96.3 Pulse 69 Resp 18 B/P (MAP) 120/86 (97) Pulse Ox 98 O2 Delivery Room Air Progress Progress Note : Progress Note HEADACHE AND NAUSEA GONE AT DISMISSAL Departure Impression Primary Impression: Headache Disposition: HOME, SELF-CARE Condition: Stable Departure-Patient Inst. Referrals: NO,LOCAL PHYSICIAN (PCP/Family) Primary Care Physician Patient Instructions: Headache, Adult (DC) Add. Discharge Instructions: MOIST HEAT TO NECK AREA AT 20 MINUTE INTERVALS LOTS OF FLUIDS TYLENOL 1 GRAM/ MOTRIN 800 MG 4 TIMES A DAY NEEDED FOR PAIN FOLLOW UP WITH YOUR DR IN 2-3 DAYS IF NO BETTER All discharge instructions reviewed with patient and/or family. Voiced understanding. Scripts No Active Prescriptions or Reported Meds LUIS VAZQUEZ DO Nov 28, 2018 20:26
[2018-11-28 20:54] LABS: AMPHETAMINE SCREEN, URINE NEGATIVE (NEGATIVE); BARBITURATE SCREEN URINE NEGATIVE (NEGATIVE); BENZODIAZEPINES SCREEN URINE NEGATIVE (NEGATIVE); CANNABINOID SCREEN, URINE NEGATIVE (NEGATIVE); COCAINE SCREEN URINE NEGATIVE (NEGATIVE); METHADONE STAT NEGATIVE (NEGATIVE); METHAMPHETAMINE SCREEN URINE S NEGATIVE (NEGATIVE); OPIATE SCREEN URINE NEGATIVE (NEGATIVE); OXYCODONE STAT NEGATIVE (NEGATIVE); PROPOXYPHENE STAT NEGATIVE (NEGATIVE); TRICYCLIC ANTIDEPRESSANTS SCRE NEGATIVE (NEGATIVE)
[2018-11-28] MEDS ORDERED: KETOROLAC 60 MG/2 ML VIAL IM ONE (21:00)
[2018-11-28] MEDS ORDERED: ORPHENADRINE 60 MG/2 ML (NORFLEX) AMP IM ONE (21:00)
[2018-11-28] MEDS ORDERED: diphenhydrAMINE 50 MG/ML INJ (BENADRYL) IM ONE (21:00)
[2018-11-28] MEDS ORDERED: ONDANSETRON 4 MG (ZOFRAN) ORAL DISSOLVE TAB PO ONE (21:30)
[2018-11-28 21:43] VITALS: BP 125/96
== END 2018-11-28 21:43 | disposition home or self-care (01) ==
LOC: ER 19:07
DX: R51 Headache (principal); G40.909 Epilepsy, unspecified, not intractable, without status epilepticus; F41.9 Anxiety disorder, unspecified; M41.9 Scoliosis, unspecified; F12.10 Cannabis abuse, uncomplicated; F17.210 Nicotine dependence, cigarettes, uncomplicated; Z86.69 Personal history of other diseases of the nervous system and sense organs; Z87.448 Personal history of other diseases of urinary system; Z98.51 Tubal ligation status; Z87.19 Personal history of other diseases of the digestive system; Z98.890 Other specified postprocedural states
CPT/HCPCS: 80306; 84703; 99284

== ENCOUNTER 2019-06-08 17:52 | Emergency (ER) | payer OTHER ==
[~2019-06-08] VITALS: Ht 162.6 cm; Wt 77.1 kg
[2019-06-08 18:34] LABS: BILIRUBIN,URINE NEGATIVE (NEGATIVE); CLARITY,URINE CLEAR; COLOR,URINE YELLOW; GLUCOSE, URINE (UA) NEGATIVE (NEGATIVE); KETONES,URINE 1+ (NEGATIVE); LEUKOCYTE ESTERASE ,URINE 2+ (NEGATIVE); NITRITE,URINE NEGATIVE (NEGATIVE); PH,URINE 5 (5-9); PROTEIN,URINE 1+ (NEGATIVE); UROBILINOGEN,URINE 4 MG/DL (NORMAL)
[2019-06-08 18:57] LABS: SQUAMOUS EPITHELIAL CELL,UR 25-50 /HPF
[2019-06-08 18:59] LABS: BASOPHILS % (AUTO) 0 % (0-10); EOSINOPHILS # (AUTO) 0.1 10^3/uL (0.0-0.3); EOSINOPHILS % (AUTO) 1 % (0-10); HEMATOCRIT 41 % (35-52); HEMOGLOBIN 14.1 G/DL (11.5-16.0); LYMPHOCYTES # (AUTO) 2.4 X 10^3 (1.0-4.0); LYMPHOCYTES % (AUTO) 25 % (12-44); MEAN CORPUSCULAR HEMOGLOBIN 30 PG (25-34); MEAN CORPUSCULAR HGB CONC 35 G/DL (32-36); MEAN CORPUSCULAR VOLUME 87 FL (80-99); MEAN PLATELET VOLUME 9.6 FL (7.4-10.4); MONOCYTES # (AUTO) 0.9 X 10^3 (0.0-1.0); MONOCYTES % (AUTO) 9 % (0-12); NEUTROPHILS # (AUTO) 6.2 X 10^3 (1.8-7.8); NEUTROPHILS % (AUTO) 65 % (42-75); PLATELET COUNT 340 10^3/uL (130-400); WHITE BLOOD COUNT 9.6 10^3/uL (4.3-11.0)
[2019-06-08 19:00] LABS: BACTERIA,URINE MODERATE /HPF
[2019-06-08] MEDS ORDERED: KETOROLAC 30 MG/ML VIAL IVP ONE (19:00)
--- NOTE | 2019-06-08 19:08 | ED General ---
General Chief Complaint: General Problems/Pain Stated Complaint: FOOT TINGLING,SHAKEY Nursing Triage Note: STATES SHE HAS A HX OF SEIZURES THAT START IN HER TOES AND GOES UP TO HER HEAD THEN SHE BLANKS OUT. STATES SHE FORGOT HER MEDS YESTERDAY AND TODAY HER FEET ARE TINGLING AND SHE IS SHAKEY. Nursing Sepsis Screen: No Definite Risk Source of Information: Patient Exam Limitations: No Limitations History of Present Illness Date Seen by Provider: Jun 08, 2019 Time Seen by Provider: 18:44 Initial Comments This 39-year-old woman presents to the emergency room with 2 hours of cramping in her toes. Cramping has moved up to her legs and her hands. She has associated tingling. She also has some headache. She reports having similar symptoms in the past that have progressed into "seizures". She reports that these "seizures" resulted in a stiffening of her body and altered mental status but no loss of consciousness. She is concerned because she missed her morning medications of Vraylar, Keppra, and Topamax yesterday. She did take her doses last night and this morning. She is also anxious because her is not with her tonight and it is their one year anniversary. Allergies and Home Medications Allergies Coded Allergies: No Known Drug Allergies (Unverified , 10/19/17) Home Medications Cephalexin 500 Mg Capsule, 500 MG PO TID Prescribed by: JEM COLIN on 06/08/191953 Patient Home Medication List Home Medication List Reviewed: Yes Review of Systems Review of Systems Constitutional: no symptoms reported EENTM: no symptoms reported Respiratory: no symptoms reported Cardiovascular: no symptoms reported Gastrointestinal: no symptoms reported Genitourinary: no symptoms reported : No Musculoskeletal: see HPI Skin: no symptoms reported Psychiatric/Neurological: See HPI Hematologic/Lymphatic: No Symptoms Reported Immunological/Allergic: no symptoms reported Past Eframyz-Zilszm-Amotws Hx Past Med/Social Hx: Reviewed and Corrections made Patient Social History Alcohol Use: Denies Use Recreational Drug Use: No Smoking Status: Current Everyday Smoker Type Used: Cigarettes Recent Foreign Travel: No Contact w/Someone Who Travel: No Recent Infectious Disease Expo: No Recent Hopitalizations: No Physical Abuse: No Sexual Abuse: No Mistreated: No Fear: No Seasonal Allergies Seasonal Allergies: Yes Past Medical History Surgeries: Yes (UMBILICAL HERNIA REPAIR) Abdominal, Tubal Ligation Respiratory: No Cardiac: No Neurological: Yes Headaches /Migraines, Seizure Disorder Reproductive Disorders: Yes (ADENOMYOSIS, PER PT) 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 0oz. 77.468035vk; BMI Method:Estimated General Appearance: No Apparent Distress, WD/WN HEENT: PERRL/EOMI, Normal ENT Inspection Neck: Normal Inspection Respiratory: Lungs Clear, Normal Breath Sounds, No Accessory Muscle Use, No R espiratory Distress Cardiovascular: Regular Rate, Rhythm, No Edema, No Murmur Extremity: No Pedal Edema, Other (Cramping in the toes) Neurologic/Psychiatric: Alert, Oriented x3, No Motor/Sensory Deficits, geographical historian II- XII Norm as Tested, Other (Mildly anxious) Skin: Normal Color, Warm/Dry Progress/Results/Core Measures Suspected Sepsis Recent Fever Within 48 Hours: No Infection Criteria Present: None New/Unexplained Altered Menta: No Sepsis Screen: No Definite Risk SIRS Temperature:98.0 Pulse: 87 Respiratory Rate: 16 Laboratory Tests 06/08/19 18:26: White Blood Count 9.6 Blood Pressure 132 /96 Mean: 108 Laboratory Tests 06/08/19 18:26: Creatinine 0.88, Platelet Count 340 Results/Orders Lab Results Laboratory Tests Test 06/08/19 18:08 06/08/19 18:26 Range/Units Urine Color YELLOW Urine Clarity CLEAR Urine pH 5 5-9 Urine Specific [place] 1.020 1.016-1.022 Urine Protein 1+ H NEGATIVE Urine Glucose (UA) NEGATIVE NEGATIVE Urine Ketones 1+ H NEGATIVE Urine Nitrite NEGATIVE NEGATIVE Urine Bilirubin NEGATIVE NEGATIVE Urine Urobilinogen 4 H NORMAL MG/DL Urine Leukocyte Esterase 2+ H NEGATIVE Urine RBC (Auto) NEGATIVE NEGATIVE Urine RBC NONE /HPF Urine WBC 5-10 H /HPF Urine Squamous Epithelial Cells 25-50 H /HPF Urine Crystals NONE /LPF Urine Bacteria MODERATE H /HPF Urine Casts NONE /LPF Urine Mucus NEGATIVE /LPF Urine Culture Indicated YES White Blood Count 9.6 4.3-11.0 10^3/uL Red Blood Count 4.73 4.35-5.85 10^6/uL Hemoglobin 14.1 11.5-16.0 G/DL Hematocrit 41 35-52 % Mean Corpuscular Volume 87 80-99 FL Mean Corpuscular Hemoglobin 30 25-34 PG Mean Corpuscular Hemoglobin Concent 35 32-36 G/DL Red Cell Distribution Width 14.0 10.0-14.5 % Platelet Count 340 130-400 10^3/uL Mean Platelet Volume 9.6 7.4-10.4 FL Neutrophils (%) (Auto) 65 42-75 % Lymphocytes (%) (Auto) 25 12-44 % Monocytes (%) (Auto) 9 0-12 % Eosinophils (%) (Auto) 1 0-10 % Basophils (%) (Auto) 0 0-10 % Neutrophils # (Auto) 6.2 1.8-7.8 X 10^3 Lymphocytes # (Auto) 2.4 1.0-4.0 X 10^3 Monocytes # (Auto) 0.9 0.0-1.0 X 10^3 Eosinophils # (Auto) 0.1 0.0-0.3 10^3/uL Basophils # (Auto) 0.0 0.0-0.1 10^3/uL Sodium Level 140 135-145 MMOL/L Potassium Level 3.9 3.6-5.0 MMOL/L Chloride Level 112 H 98-107 MMOL/L Carbon Dioxide Level 18 L 21-32 MMOL/L Anion Gap 10 5-14 MMOL/L Blood Urea Nitrogen 13 7-18 MG/DL Creatinine 0.88 0.60-1.30 MG/DL Estimat Glomerular Filtration Rate > 60 BUN/Creatinine Ratio 15 Glucose Level 89 70-105 MG/DL Calcium Level 9.3 8.5-10.1 MG/DL Magnesium Level 2.1 1.6-2.4 MG/DL My Orders Orders - JEM BOWERS MD Basic Metabolic Panel (06/08/19 18:53) Cbc With Automated Diff (06/08/19 18:53) Magnesium (06/08/19 18:53) Ed Iv/Invasive Line Start (06/08/19 18:53) Ketorolac Injection (Toradol Injection) (06/08/19 19:00) Cephalexin Capsule (Keflex Capsule) (06/08/19 20:00) Medications Given in ED Current Medications Medications Dose Ordered Sig/Chelsie Route Start Time Stop Time Status Last Admin Dose Admin Cephalexin HCl 500 mg ONCE ONCE PO 06/08/19 20:00 06/08/19 20:01 DC 06/08/19 19:58 500 MG Vital Signs/I&O 06/08/19 20:00 Temp 98.0 Pulse 73 Resp 16 B/P (MAP) 118/85 (96) Pulse Ox 99 O2 Delivery Room Air Capillary Refill : Less Than 3 Seconds Blood Pressure Mean: 108 Progress Note : Progress Note Basic labs were unremarkable. Patient was given Toradol for headache. Cramping resolved. Departure Impression Primary Impression: Muscle cramping Additional Impressions: Acute headache Qualified Codes: R51 - Headache Urinary tract infection Qualified Codes: N39.0 - Urinary tract infection, site not specified Disposition: HOME, SELF-CARE Condition: Improved Departure-Patient Inst. Decision time for Depature: 19:53 [facility] Primary Care Physician NIKKI MATOS APRN (Family) Primary Care Physician Patient Instructions: Urinary Tract Infection, Adult (DC) Add. Discharge Instructions: Drink plenty of clear liquids. You may take ibuprofen and/or Tylenol (acetaminophen) for headache. Continue with your usual medications as previously prescribed. Return to care if you have worsening symptoms. Complete your antibiotic as prescribed. You may review urine culture results with your primary care provider in 3 or 4 days. All discharge instructions reviewed with patient and/or family. Voiced understanding. Scripts Cephalexin (Keflex) 500 Mg Capsule 500 MG PO TID, #15 CAP Prov: JEM BOWERS MD 06/08/19 JEM BOWERS MD Jun 08, 2019 19:08
[2019-06-08 19:10] LABS: BUN/CREATININE RATIO 15; CALCIUM 9.3 MG/DL (8.5-10.1); CARBON DIOXIDE 18 MMOL/L (21-32); CHLORIDE 112 MMOL/L (98-107); CREATININE SERUM 0.88 MG/DL (0.60-1.30); GFR ESTIMATED > 60; GLUCOSE 89 MG/DL (70-105); MAGNESIUM 2.1 MG/DL (1.6-2.4); POTASSIUM 3.9 MMOL/L (3.6-5.0); SODIUM 140 MMOL/L (135-145)
[2019-06-08] MEDS ORDERED: CEPH-507 PO (19:54)
[2019-06-08 20:00] VITALS: BP 118/85
[2019-06-08] MEDS ORDERED: CEPHALEXIN 250 MG (KEFLEX) CAP PO ONE (20:00)
== END 2019-06-08 20:00 | disposition home or self-care (01) ==
LOC: EDUNIT# 17:52 → ER 17:54
DX: N39.0 Urinary tract infection, site not specified (principal); R51 Headache; R25.2 Cramp and spasm; G40.909 Epilepsy, unspecified, not intractable, without status epilepticus; Z86.69 Personal history of other diseases of the nervous system and sense organs; F41.9 Anxiety disorder, unspecified; F17.210 Nicotine dependence, cigarettes, uncomplicated; Z91.14 Patient's other noncompliance with medication regimen; Z98.890 Other specified postprocedural states; Z98.51 Tubal ligation status; Z87.19 Personal history of other diseases of the digestive system
CPT/HCPCS: 36415; 80048; 81000; 83735; 85025; 87088

== ENCOUNTER 2019-06-14 15:30 | Emergency (ER) | payer OTHER ==
[~2019-06-14] VITALS: Ht 162.6 cm; Wt 85.7 kg
[~2019-06-14 15:30] MED LIST: CEPH-507 PO
--- NOTE | 2019-06-14 15:52 | NUR ---
AMB TO ROOM NO NEW C/O
--- NOTE | 2019-06-14 16:10 | NUR ---
WHILE PLACING FOELY PATIENT REPORTED THAT HE HAS HAD THIS PROBLEM FOR YEARS. BUT NOT REALLY HAD ANY FOLLOW UP WITH UROLOGIST
[2019-06-14 16:23] LABS: BILIRUBIN,URINE NEGATIVE (NEGATIVE); CLARITY,URINE CLEAR; COLOR,URINE YELLOW; GLUCOSE, URINE (UA) NEGATIVE (NEGATIVE); KETONES,URINE NEGATIVE (NEGATIVE); LEUKOCYTE ESTERASE ,URINE NEGATIVE (NEGATIVE); NITRITE,URINE NEGATIVE (NEGATIVE); PH,URINE 6.5 (5-9); PROTEIN,URINE NEGATIVE (NEGATIVE); UROBILINOGEN,URINE NORMAL (NORMAL)
[2019-06-14 16:30] LABS: HCG,QUALITATIVE URINE NEGATIVE (NEGATIVE)
[2019-06-14 16:36] LABS: BASOPHILS % (AUTO) 0 % (0-10); EOSINOPHILS # (AUTO) 0.1 10^3/uL (0.0-0.3); EOSINOPHILS % (AUTO) 2 % (0-10); HEMATOCRIT 40 % (35-52); HEMOGLOBIN 13.3 G/DL (11.5-16.0); LYMPHOCYTES # (AUTO) 2.1 X 10^3 (1.0-4.0); LYMPHOCYTES % (AUTO) 25 % (12-44); MEAN CORPUSCULAR HEMOGLOBIN 29 PG (25-34); MEAN CORPUSCULAR HGB CONC 33 G/DL (32-36); MEAN CORPUSCULAR VOLUME 88 FL (80-99); MEAN PLATELET VOLUME 9.3 FL (7.4-10.4); MONOCYTES # (AUTO) 0.8 X 10^3 (0.0-1.0); MONOCYTES % (AUTO) 9 % (0-12); NEUTROPHILS # (AUTO) 5.5 X 10^3 (1.8-7.8); NEUTROPHILS % (AUTO) 65 % (42-75); PLATELET COUNT 325 10^3/uL (130-400); RED CELL DISTRIBUTION WIDTH 14.5 % (10.0-14.5); WHITE BLOOD COUNT 8.5 10^3/uL (4.3-11.0)
[2019-06-14 16:39] LABS: AMPHETAMINE SCREEN, URINE NEGATIVE (NEGATIVE); BARBITURATE SCREEN URINE NEGATIVE (NEGATIVE); BENZODIAZEPINES SCREEN URINE POSITIVE (NEGATIVE); CANNABINOID SCREEN, URINE NEGATIVE (NEGATIVE); COCAINE SCREEN URINE NEGATIVE (NEGATIVE); METHADONE STAT NEGATIVE (NEGATIVE); METHAMPHETAMINE SCREEN URINE S NEGATIVE (NEGATIVE); OPIATE SCREEN URINE NEGATIVE (NEGATIVE); OXYCODONE STAT NEGATIVE (NEGATIVE); PROPOXYPHENE STAT NEGATIVE (NEGATIVE); TRICYCLIC ANTIDEPRESSANTS SCRE NEGATIVE (NEGATIVE)
[2019-06-14 16:48] LABS: BACTERIA,URINE TRACE /HPF; SQUAMOUS EPITHELIAL CELL,UR 0-2 /HPF; WBC,URINE RARE /HPF
[2019-06-14 16:53] LABS: BUN/CREATININE RATIO 9; CARBON DIOXIDE 22 MMOL/L (21-32); CHLORIDE 112 MMOL/L (98-107); CREATININE SERUM 0.82 MG/DL (0.60-1.30); GFR ESTIMATED > 60; GLUCOSE 101 MG/DL (70-105); POTASSIUM 3.5 MMOL/L (3.6-5.0); SODIUM 141 MMOL/L (135-145)
--- NOTE | 2019-06-14 16:53 | ED GU-Female ---
General Chief Complaint: - Urinary Stated Complaint: SENT BY [facility] TO GET CATHETER Nursing Triage Note: PT AMB TO TRIAGE AFTER BEING SENT FROM [facility] FOR CATHETER PLACEMENT. PT STATES SHE HAS BEEN UNABLE TO URINATE. STATES WAS ONLY ABLE TO URINATE 50MLS OVER THE WEEKEND. STATES URINE CULTURES HAVE COME BACK NEGATIVE. DID TAKE WHOLE COURSE OF MACROBID. Nursing Sepsis Screen: No Definite Risk Source: patient Exam Limitations: no limitations History of Present Illness Date Seen by Provider: Jun 14, 2019 Time Seen by Provider: 16:52 Initial Comments Sent here allegedly to get a Hernandez catheter. 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 States that she occasionally has to get a Hernandez catheter. Timing/Duration: constant Severity/Quality: moderate Location: suprapubic Radiation: none Activities at Onset: none Prior Genitourinary Problems: none Allergies and Home Medications Allergies Coded Allergies: No Known Drug Allergies (Unverified , 10/19/17) Home Medications Cephalexin 500 Mg Capsule, 500 MG PO TID Prescribed by: JEM COLIN on 06/08/191953 Patient Home Medication List Home Medication List Reviewed: Yes Review of Systems Review of Systems Constitutional: see HPI EENTM: see HPI Respiratory: no symptoms reported Cardiovascular: no symptoms reported Genitourinary: no symptoms reported Musculoskeletal: no symptoms reported Skin: no symptoms reported Psychiatric/Neurological: No Symptoms Reported Endocrine: No Symptoms Reported Past Dpsddsl-Dhmhup-Hcgqgs Hx Patient Social History Alcohol Use: Denies Use Recreational Drug Use: No Smoking Status: Current Everyday Smoker Type Used: Cigarettes Recent Foreign Travel: No Contact w/Someone Who Travel: No Recent Infectious Disease Expo: No Recent Hopitalizations: No Seasonal Allergies Seasonal Allergies: Yes Past Medical History Surgeries: Yes (UMBILICAL HERNIA REPAIR) Abdominal, Tubal Ligation Respiratory: No Cardiac: No Neurological: Yes Headaches /Migraines, Seizure Disorder Reproductive Disorders: Yes (ADENOMYOSIS, PER PT) [employer]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 0oz. [id number]; BMI Method:Stated General Appearance: WD/WN, no apparent distress HEENT: PERRL/EOMI, normal ENT inspection Respiratory: no respiratory distress, no accessory muscle use Gastrointestinal: normal bowel sounds, non tender Neurologic/Psychiatric: alert, normal mood/affect, oriented x 3 Skin: normal color, warm/dry Progress/Results/Core Measures Suspected Sepsis Recent Fever Within 48 Hours: No Infection Criteria Present: None New/Unexplained Altered Menta: No Sepsis Screen: No Definite Risk SIRS Temperature:99.0 Pulse: 86 Respiratory Rate: 18 Laboratory Tests 06/14/19 16:28: White Blood Count 8.5 Blood Pressure 125 /82 Mean: 96 Laboratory Tests 06/14/19 16:28: Creatinine 0.82, Platelet Count 325 Results/Orders Lab Results Laboratory Tests Test 06/14/19 16:10 06/14/19 16:28 Range/Units Urine Color YELLOW Urine Clarity CLEAR Urine pH 6.5 5-9 Urine Specific [place] 1.005 L 1.016-1.022 Urine Protein NEGATIVE NEGATIVE Urine Glucose (UA) NEGATIVE NEGATIVE Urine Ketones NEGATIVE NEGATIVE Urine Nitrite NEGATIVE NEGATIVE Urine Bilirubin NEGATIVE NEGATIVE Urine Urobilinogen NORMAL NORMAL MG/DL Urine Leukocyte Esterase NEGATIVE NEGATIVE Urine RBC (Auto) NEGATIVE NEGATIVE Urine RBC NONE /HPF Urine WBC RARE /HPF Urine Squamous Epithelial Cells 0-2 /HPF Urine Crystals NONE /LPF Urine Bacteria TRACE /HPF Urine Casts NONE /LPF Urine Mucus NEGATIVE /LPF Urine Culture Indicated NO Urine Test NEGATIVE NEGATIVE Urine Opiates Screen NEGATIVE NEGATIVE Urine Oxycodone Screen NEGATIVE NEGATIVE Urine Methadone Screen NEGATIVE NEGATIVE Urine Propoxyphene Screen NEGATIVE NEGATIVE Urine Barbiturates Screen NEGATIVE NEGATIVE Ur Tricyclic Antidepressants Screen NEGATIVE NEGATIVE Urine Phencyclidine Screen NEGATIVE NEGATIVE Urine Amphetamines Screen NEGATIVE NEGATIVE Urine Methamphetamines Screen NEGATIVE NEGATIVE Urine Benzodiazepines Screen POSITIVE H NEGATIVE Urine Cocaine Screen NEGATIVE NEGATIVE Urine Cannabinoids Screen NEGATIVE NEGATIVE White Blood Count 8.5 4.3-11.0 10^3/uL Red Blood Count 4.55 4.35-5.85 10^6/uL Hemoglobin 13.3 11.5-16.0 G/DL Hematocrit 40 35-52 % Mean Corpuscular Volume 88 80-99 FL Mean Corpuscular Hemoglobin 29 25-34 PG Mean Corpuscular Hemoglobin Concent 33 32-36 G/DL Red Cell Distribution Width 14.5 10.0-14.5 % Platelet Count 325 130-400 10^3/uL Mean Platelet Volume 9.3 7.4-10.4 FL Neutrophils (%) (Auto) 65 42-75 % Lymphocytes (%) (Auto) 25 12-44 % Monocytes (%) (Auto) 9 0-12 % Eosinophils (%) (Auto) 2 0-10 % Basophils (%) (Auto) 0 0-10 % Neutrophils # (Auto) 5.5 1.8-7.8 X 10^3 Lymphocytes # (Auto) 2.1 1.0-4.0 X 10^3 Monocytes # (Auto) 0.8 0.0-1.0 X 10^3 Eosinophils # (Auto) 0.1 0.0-0.3 10^3/uL Basophils # (Auto) 0.0 0.0-0.1 10^3/uL Sodium Level 141 135-145 MMOL/L Potassium Level 3.5 L 3.6-5.0 MMOL/L Chloride Level 112 H 98-107 MMOL/L Carbon Dioxide Level 22 21-32 MMOL/L Anion Gap 7 5-14 MMOL/L Blood Urea Nitrogen 7 7-18 MG/DL Creatinine 0.82 0.60-1.30 MG/DL Estimat Glomerular Filtration Rate > 60 BUN/Creatinine Ratio 9 Glucose Level 101 70-105 MG/DL Calcium Level 9.0 8.5-10.1 MG/DL My Orders Orders - JAVIER VINES APRN Ua Culture If Indicated (06/14/19 15:39) Urine Bedside (06/14/19 15:39) Cbc With Automated Diff (06/14/19 15:39) Basic Metabolic Panel (06/14/19 15:39) Hcg,Qualitative Urine (06/14/19 16:22) Drug Screen Stat (Urine) (06/14/19 16:22) Hernandez Cath (06/14/19 16:23) Vital Signs/I&O 06/14/19 15:31 Temp 99.0 Pulse 86 Resp 18 B/P (MAP) 125/82 (96) Pulse Ox 98 O2 Delivery Room Air Capillary Refill : Less Than 3 Seconds Blood Pressure Mean: 96 Departure Communication (Admissions) Hernandez catheter started by RN, 200 mL of clear yellow urine obtained. Impression Primary Impression: Urinary retention Disposition: 01 HOME, SELF-CARE Condition: Stable Departure-Patient Inst. Decision time for Depature: 16:53 Referrals: [facility] (PCP) Primary Care Physician NIKKI MATOS APRN (Family) Primary Care Physician Patient Instructions: Urinary Retention Add. Discharge Instructions: 1. Follow up with your doctor this week to have the hernandez catheter removed towards the end of the week. All discharge instructions reviewed with patient and/or family. Voiced understanding. JAVIER VINES APRN Jun 14, 2019 16:53
--- NOTE | 2019-06-14 17:20 | NUR ---
200 CC IN [place] CONVERTED TO LEG BAG AND INSTRUCTED HOW TO USE.
[2019-06-14 17:27] VITALS: BP 111/69
== END 2019-06-14 17:30 | disposition home or self-care (01) ==
LOC: EDUNIT# 15:30 → ER 15:31
DX: R33.9 Retention of urine, unspecified (principal); G40.909 Epilepsy, unspecified, not intractable, without status epilepticus; G43.909 Migraine, unspecified, not intractable, without status migrainosus; F41.9 Anxiety disorder, unspecified; F17.210 Nicotine dependence, cigarettes, uncomplicated; Z98.890 Other specified postprocedural states; Z98.51 Tubal ligation status; Z87.19 Personal history of other diseases of the digestive system
CPT/HCPCS: 36415; 51702; 80048; 80306; 81000; 84703; 85025

== ENCOUNTER 2020-05-17 15:35 | Emergency (ER) | payer SELFPAY ==
[~2020-05-17] VITALS: Ht 165.1 cm; Wt 84.5 kg
--- NOTE | 2020-05-17 16:02 | ED GU-Female ---
General Stated Complaint: UNABLE TO URINATE Source: patient Exam Limitations: no limitations History of Present Illness Date Seen by Provider: May 17, 2020 Time Seen by Provider: 16:01 Initial Comments Unable to urinate. Last time she had this happen she was given a Flores catheter for a week, was then removed and she was able to urinate. History of these t rouble since a very young age. He did report some suprapubic abdominal discomfort and believes she might have a urinary tract infection. Timing/Duration: constant Severity/Quality: moderate Radiation: none Prior Genitourinary Problems: none Associated Symptoms: other Allergies and Home Medications Allergies Coded Allergies: No Known Drug Allergies (Unverified , 10/19/17) Home Medications Cephalexin 500 Mg Capsule, 500 MG PO TID Prescribed by: JEM COLIN on 06/08/191953 Phenazopyridine HCl 100 Mg Tablet, 100 MG PO TID Prescribed by: JAVIER VINES on 05/17/20 1626 Patient Home Medication List Home Medication List Reviewed: Yes Review of Systems Review of Systems Constitutional: see HPI EENTM: see HPI Respiratory: no symptoms reported Cardiovascular: no symptoms reported Genitourinary: see HPI Musculoskeletal: no symptoms reported Skin: no symptoms reported Psychiatric/Neurological: No Symptoms Reported Endocrine: No Symptoms Reported Hematologic/Lymphatic: No Symptoms Reported Past Mgpbvwy-Ywdclc-Sbfnmn Hx Patient Social History Type Used: Cigarettes Recent Foreign Travel: No Contact w/Someone Who Travel: No Recent Hopitalizations: No Seasonal Allergies Seasonal Allergies: Yes Past Medical History Surgeries: Yes (UMBILICAL HERNIA REPAIR) Abdominal, Tubal Ligation Respiratory: No Cardiac: No Neurological: Yes Headaches /Migraines, Seizure Disorder Reproductive Disorders: 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 0oz. [id number]; BMI Method:Stated General Appearance: WD/WN, no apparent distress Respiratory: no respiratory distress, no accessory muscle use Gastrointestinal: normal bowel sounds, non tender Neurologic/Psychiatric: alert, normal mood/affect, oriented x 3 Skin: normal color, warm/dry Progress/Results/Core Measures Suspected Sepsis SIRS Temperature: Pulse: Respiratory Rate: Laboratory Tests 05/17/20 16:22: White Blood Count 9.9 Blood Pressure / Mean: Laboratory Tests 05/17/20 16:22: Creatinine 0.85, Platelet Count 323 Results/Orders Lab Results Laboratory Tests Test 05/17/20 15:51 05/17/20 16:22 Range/Units Urine Color YELLOW Urine Clarity CLEAR Urine pH 5.5 5-9 Urine Specific [place] >=1.030 1.016-1.022 Urine Protein NEGATIVE NEGATIVE Urine Glucose (UA) NEGATIVE NEGATIVE Urine Ketones NEGATIVE NEGATIVE Urine Nitrite NEGATIVE NEGATIVE Urine Bilirubin NEGATIVE NEGATIVE Urine Urobilinogen 0.2 < = 1.0 MG/DL Urine Leukocyte Esterase NEGATIVE NEGATIVE Urine RBC (Auto) NEGATIVE NEGATIVE Urine RBC NONE /HPF Urine WBC RARE /HPF Urine Squamous Epithelial Cells 2-5 /HPF Urine Crystals NONE /LPF Urine Bacteria TRACE /HPF Urine Casts NONE /LPF Urine Mucus NEGATIVE /LPF Urine Culture Indicated NO Urine Opiates Screen NEGATIVE NEGATIVE Urine Oxycodone Screen NEGATIVE NEGATIVE Urine Methadone Screen NEGATIVE NEGATIVE Urine Propoxyphene Screen NEGATIVE NEGATIVE Urine Barbiturates Screen NEGATIVE NEGATIVE Ur Tricyclic Antidepressants Screen NEGATIVE NEGATIVE Urine Phencyclidine Screen NEGATIVE NEGATIVE Urine Amphetamines Screen POSITIVE H NEGATIVE Urine Methamphetamines Screen POSITIVE H NEGATIVE Urine Benzodiazepines Screen NEGATIVE NEGATIVE Urine Cocaine Screen NEGATIVE NEGATIVE Urine Cannabinoids Screen POSITIVE H NEGATIVE White Blood Count 9.9 4.3-11.0 10^3/uL Red Blood Count 5.02 4.35-5.85 10^6/uL Hemoglobin 14.8 11.5-16.0 G/DL Hematocrit 44 35-52 % Mean Corpuscular Volume 88 80-99 FL Mean Corpuscular Hemoglobin 30 25-34 PG Mean Corpuscular Hemoglobin Concent 34 32-36 G/DL Red Cell Distribution Width 14.5 10.0-14.5 % Platelet Count 323 130-400 10^3/uL Mean Platelet Volume 9.7 7.4-10.4 FL Neutrophils (%) (Auto) 64 42-75 % Lymphocytes (%) (Auto) 26 12-44 % Monocytes (%) (Auto) 8 0-12 % Eosinophils (%) (Auto) 2 0-10 % Basophils (%) (Auto) 0 0-10 % Neutrophils # (Auto) 6.4 1.8-7.8 X 10^3 Lymphocytes # (Auto) 2.6 1.0-4.0 X 10^3 Monocytes # (Auto) 0.8 0.0-1.0 X 10^3 Eosinophils # (Auto) 0.2 0.0-0.3 10^3/uL Basophils # (Auto) 0.0 0.0-0.1 10^3/uL Sodium Level 141 135-145 MMOL/L Potassium Level 4.2 3.6-5.0 MMOL/L Chloride Level 106 98-107 MMOL/L Carbon Dioxide Level 26 21-32 MMOL/L Anion Gap 9 5-14 MMOL/L Blood Urea Nitrogen 10 7-18 MG/DL Creatinine 0.85 0.60-1.30 MG/DL Estimat Glomerular Filtration Rate > 60 BUN/Creatinine Ratio 12 Glucose Level 82 70-105 MG/DL Calcium Level 9.3 8.5-10.1 MG/DL My Orders Orders - JAVIER VINES APRN Ua Culture If Indicated (05/17/20 15:49) Straight Cath (Urinary) (05/17/20 15:49) Flores Cath (05/17/20 16:00) Cbc With Automated Diff (05/17/20 16:09) Basic Metabolic Panel (05/17/20 16:09) Ed Iv/Invasive Line Start (05/17/20 16:09) Ns Iv 1000 Ml (Sodium Chloride 0.9%) (05/17/20 16:15) Ct Abdomen/Pelvis W (05/17/20 16:38) Drug Screen Stat (Urine) (05/17/20 16:38) Iohexol Injection (Omnipaque 350 Mg/Ml 1 (05/17/20 17:15) Received Contrast (Hold Metformin- Contr (05/17/20 17:15) Ns (Ivpb) (Sodium Chloride 0.9% Ivpb Bag (05/17/20 17:15) Ketorolac Injection (Toradol Injection) (05/17/20 17:30) Medications Given in ED Current Medications Medications Dose Ordered Sig/Chelsie Route Start Time Stop Time Status Last Admin Dose Admin Iohexol 100 ml ONCE ONCE IV 05/17/20 17:15 05/17/20 17:20 DC 05/17/20 17:13 99 ML Sodium Chloride 100 ml ONCE ONCE IV 05/17/20 17:15 05/17/20 17:20 DC 05/17/20 17:13 80 ML Vital Signs/I&O 05/17/20 15:46 Temp 36.9 Pulse 72 Resp 20 B/P (MAP) 118/92 (101) Pulse Ox 98 O2 Delivery Room Air Capillary Refill : Departure Communication (Admissions) 1610-to ER with suprapubic discomfort urinary frequency and nausea. She states last time this happened she had had a Flores catheter. We inserted a Flores catheter on arrival here, got only about 50 cc of urine out. For this reason she does not need Flores catheter, we need to administer some IV fluids and check kidney function. Patient reports that as soon as the catheter was inserted her pain went away. However again she's only had about in the catheter bag 20 minutes after catheter insertion. This is not a retention issue. 172-despite rocking back and forth and inability to sit still+ postitive UDS, she denies methamphetamine use for "at least 2 years". Impression Primary Impression: Dysuria Additional Impression: Methamphetamine use Disposition: 01 HOME, SELF-CARE Condition: Stable Departure-Patient Inst. Decision time for Depature: 16:05 [facility] Primary Care Physician KENNETH BRAVO APRN (Family) Primary Care Physician JEN BARRON MD Patient Instructions: Dysuria, Adult (DC), Drug Abuse Treatment Add. Discharge Instructions: 1. Return to ER for any concerns 2. Call Dr. Barron tomorrow to make an appointment to be seen. The medication will turn the urine dark orange, do not let this alarm you Scripts Phenazopyridine HCl (Phenazopyridine HCl) 100 Mg Tablet 100 MG PO TID, #6 TAB Prov: JAVIER VINES APRN 05/17/20 JAVIER VINES APRN May 17, 2020 16:02
[2020-05-17 16:06] LABS: BILIRUBIN,URINE NEGATIVE (NEGATIVE); CLARITY,URINE CLEAR; COLOR,URINE YELLOW; GLUCOSE, URINE (UA) NEGATIVE (NEGATIVE); KETONES,URINE NEGATIVE (NEGATIVE); LEUKOCYTE ESTERASE ,URINE NEGATIVE (NEGATIVE); NITRITE,URINE NEGATIVE (NEGATIVE); PH,URINE 5.5 (5-9); PROTEIN,URINE NEGATIVE (NEGATIVE)
[2020-05-17 16:23] LABS: BACTERIA,URINE TRACE /HPF; WBC,URINE RARE /HPF
[2020-05-17] MEDS ORDERED: PHEN-826 PO (16:26)
[2020-05-17 16:29] LABS: BASOPHILS % (AUTO) 0 % (0-10); EOSINOPHILS # (AUTO) 0.2 10^3/uL (0.0-0.3); EOSINOPHILS % (AUTO) 2 % (0-10); HEMATOCRIT 44 % (35-52); HEMOGLOBIN 14.8 G/DL (11.5-16.0); LYMPHOCYTES # (AUTO) 2.6 X 10^3 (1.0-4.0); LYMPHOCYTES % (AUTO) 26 % (12-44); MEAN CORPUSCULAR HEMOGLOBIN 30 PG (25-34); MEAN CORPUSCULAR HGB CONC 34 G/DL (32-36); MEAN CORPUSCULAR VOLUME 88 FL (80-99); MEAN PLATELET VOLUME 9.7 FL (7.4-10.4); MONOCYTES # (AUTO) 0.8 X 10^3 (0.0-1.0); MONOCYTES % (AUTO) 8 % (0-12); NEUTROPHILS # (AUTO) 6.4 X 10^3 (1.8-7.8); NEUTROPHILS % (AUTO) 64 % (42-75); PLATELET COUNT 323 10^3/uL (130-400); RED CELL DISTRIBUTION WIDTH 14.5 % (10.0-14.5); WHITE BLOOD COUNT 9.9 10^3/uL (4.3-11.0)
[2020-05-17] MEDS: NS IV 1000 ML 1,000 ML IV SCH ×2 (16:38→18:06)
[2020-05-17 16:43] LABS: CHLORIDE 106 MMOL/L (98-107); POTASSIUM 4.2 MMOL/L (3.6-5.0); SODIUM 141 MMOL/L (135-145)
[2020-05-17 16:44] LABS: CALCIUM 9.3 MG/DL (8.5-10.1); GLUCOSE 82 MG/DL (70-105)
[2020-05-17 16:46] LABS: CARBON DIOXIDE 26 MMOL/L (21-32)
[2020-05-17 16:48] LABS: CREATININE SERUM 0.85 MG/DL (0.60-1.30); GFR ESTIMATED > 60
[2020-05-17 16:49] LABS: BUN/CREATININE RATIO 12
[2020-05-17 16:59] LABS: AMPHETAMINE SCREEN, URINE POSITIVE (NEGATIVE); BARBITURATE SCREEN URINE NEGATIVE (NEGATIVE); BENZODIAZEPINES SCREEN URINE NEGATIVE (NEGATIVE); CANNABINOID SCREEN, URINE POSITIVE (NEGATIVE); COCAINE SCREEN URINE NEGATIVE (NEGATIVE); METHADONE STAT NEGATIVE (NEGATIVE); METHAMPHETAMINE SCREEN URINE S POSITIVE (NEGATIVE); OPIATE SCREEN URINE NEGATIVE (NEGATIVE); OXYCODONE STAT NEGATIVE (NEGATIVE); PROPOXYPHENE STAT NEGATIVE (NEGATIVE); TRICYCLIC ANTIDEPRESSANTS SCRE NEGATIVE (NEGATIVE)
[2020-05-17] MEDS ORDERED: NS 100 ML (IVPB) BAG IV ONE (17:15)
[2020-05-17] MEDS ORDERED: HOLD METFORMIN - RECEIVED CONTRAST 20 ML VIAL IV SCH (17:15)
[2020-05-17] MEDS ORDERED: IOHEXOL 350 MG/ML 100 ML (OMNIPAQUE 350) VIAL IV ONE (17:15)
--- NOTE | 2020-05-17 17:23 | Diagnostic Imaging Report ---
EXAMINATION: CT Abdomen and Pelvis with intravenous contrast. TECHNIQUE: Multiple contiguous axial images were obtained through the abdomen and pelvis after the uneventful administration of intravenous contrast. All CT scans use one or more of the following dose optimizing techniques: automated exposure control, MA and/or KvP adjustment based on a patient size and exam type, or iterative reconstruction. HISTORY: Lower abdominal pain. Unable to urinate. COMPARISON: None available. FINDINGS: The heart is unremarkable. The included lung bases demonstrate mild dependent atelectasis. The liver, spleen, pancreas, adrenal glands, and kidneys have a normal appearance. There is no pathologically enlarged mesenteric or retroperitoneal adenopathy. The bowel loops are nondilated. Diverticuli are present in the descending and sigmoid colon without evidence of acute diverticulitis. There is no free fluid or free air. No acute osseous abnormalities. The urinary bladder is nondistended. No bladder calculi are visualized. There is no free air, loculated collection, or adenopathy in the pelvis. IMPRESSION: 1. No acute abnormalities in the abdomen and pelvis. No inflammatory changes, free fluid, or free air. 2. No acute abnormalities are visualized in the kidneys and urinary bladder. Dictated by: Dictated on workstation # [id number]
[2020-05-17] MEDS ORDERED: KETOROLAC 30 MG/ML VIAL IVP ONE (17:30)
--- OUTSIDE RECORDS SUMMARY | 2020-05-17 17:38 | XMS REPORT ---
Author Author Oxana MATOS [facility] Address [address] [place] [address] Care Team Providers Care Patternmaker Sample Name Role Phone NIKKI MATOS Unavailable PROBLEMS Type Condition ICD9-CM Code VJW02-LT Code Onset Dates Condition S tatus SNOMED Code Problem Overweight E66.3 Active 782301890 Problem Tobacco abuse Z72.0 Active 944931 05 Problem Tobacco abuse counseling Z71.6 Activ e 668023554 Problem Anxiety associated with depression F41.8 Active 852314583 Problem Hyperlipemia E78.5 Active 0167164 4 Problem PTSD (post-traumatic stress disorder) F43.10 Active 27559404 Problem Chronic maxillary sinusitis J32.0 Ac tive 84821795 Problem Tension headache G44.209 Active 398 705924 Problem Bladder spasms N32.89 Active 69951 7006 Problem Tobacco use Z72.0 Active 68684559 0 Problem Bee sting allergy Z91.030 Active 42 4038264 Problem Migraine G43.909 Active 68141655 Problem Arachnoid cyst G93.0 Active 41767 009 Problem Allergic rhinitis, unspecified seasonality, unspecifie d trigger J30.9 Active 31731112 Problem Sleep disturbance G47.9 Active 53 372893 Problem Unspecified episodic mood disorder F39 Active [id number] ALLERGIES No Information ENCOUNTERS Encounter Location Date Diagnosis [facility] [address] [facility] [id number] [address] [place], [place] [id number] 25 Nov, 2019 Dental examination Z01.20 an d Caries K02.9 [facility] [address] [facility] [id number] [place] [phone] 14 Nov, 2019 Acute swimmer's ear of left side H60.332 [facility] [address] [facility] [id number] [place], [place] [address] Oct, Screening for STD (sexually transmitted disease) Z11.3 ; Galactorrhea of right breast N64.3 and Elevated ALT measurement R74.0 [facility] [address] [place] [id number] [address] [place] [id number] Oct, Periodontitis K05.30 [facility] [address] [place] [address] [id number] [address] [place] [id number] Oct, Dental examination Z01.20 ; Periodontitis K05.30 and Caries K02.9 [facility] [place] [address] [place] [id number] [place] [address] Sep, Well woman exam with routine gynecological exam Z01.419 ; Screening for STD (sexually transmitted disease) Z11.3 ; Galactorrhea of right breast N64.3 and Elevated ALT measurement R74.0 [facility] [address] [place] [phone] Aug, Dental examination Z01.20 an d Caries K02.9 [facility] [place] [address] [place] [address] Aug, Bee sting allergy Z91.030 [facility] [place] [address] [place] [address] Aug, Encounter for immunization Z23 [facility] [place] [facility] [address] [place] [id number] [place] [address] Aug, Allergic rhinitis, unspecified seasonality, unspecified trigger J30.9 [facility] [place] [id number] [place] [address] Jul, [facility] [place] [address] [place] [address] Jul, Insect bite (nonvenomous) of right upper arm, initial encounter S40.861A ; Bitten or stung by nonvenomous insect and other nonvenomous arthropods, initial encounter W57.XXXA and Encounter for immunization Z23 [facility] [place] [id number] [place], [place] [address] Jul, Unspecified episodic mood disorder F39 [facility] [place] [facility] [address] [place] [address] [address] Jun, Migraine G43.909 ; Sleep disturbance G47.9 ; Anxiety associated with depression F41.8 and Hyperlipemia E78.5 [facility] [address] [id number] [place] [id number] May, [facility] [facility] [address] [id number] VIEW[place] [phone] May, [facility] [place] [address] [facility] [id number] [place] [address] May, Dysuria R30.0 [facility] [address] [facility] [id number] [address] [place] [address] May, Bladder spasms N32.89 [facility] [address] [facility] [id number] [address] [place] [address] May, Urinary tract infection with out hematuria, site unspecified N39.0 and Dysuria R30.0 [facility] [address] [id number] VIEW[place] [id number] Apr, [facility] [address] [facility] [id number] [address] [place] [address] Apr, Unspecified episodic mood di sorder F39 [facility] [address] [facility] [address] [id number] VIEW[place] [phone] Apr, Unspecified episodic mood disorder F39 ; Anxiety associated with depression F41.8 ; Nipple discharge N64.52 ; Adverse effect of unspecified drugs, medicaments and biological substances, initial encounter T50.905A and Hypertrophy of breast N62 [facility] [place] [address] [facility] [id number] [place] [address] Apr, Nipple discharge in female N64.52 [facility] [address] [id number] VIEW[place] [address] Apr, Anxiety associated with depression F41.8 [facility] [address] [facility] [address] [id number] VIEW[place] [id number] Mar, [facility] TANI [address] [facility] [address] [id number] VIEW[place] [id number] Mar, Seizures R56.9 and Anxiety associated wi depression F41.[address] [facility] [address] [id number] VIEW[place] [id number] February, Anxiety associated with depression F41.8 and Seizure-like activity R56.9 [facility] [address] [place] [address] AVE [id number] VIEW[place] [id number] Jan, Migraine without aura and with status mi grainosus, not intractable G43.001 [facility] [address] [id number] VIEW[place] [phone] Jan, Migraine without aura and with status mi grainosus, not intractable G43.001 [facility] [address] [id number] VIEW[place] [id number] Dec, PTSD (post-traumatic stress disorder) F4 3.10 ; Anxiety associated with depression F41.8 ; Migraine G43.909 ; Sleep disturbance G47.9 ; History of seizure Z87.898 ; Hyperlipemia E78.5 and Allergic rhinitis, unspecified seasonality, unspecified trigger J30.9 [facility] [address] [id number] VIEW[place] [id number] Nov, Migraine without aura and with status mi grainosus, not intractable G43.001 [facility] [address] [id number] VIEW[place] [id number] Nov, Hyperlipemia E78.[address] [facility] [address] [facility] [id number] [place] [address] Nov, Hyperlipemia E78.5 and Overw eight E66.3 [facility] [address] [id number] VIEW[place] [id number] Oct, [facility] [address] [id number] VIEW[place] [id number] Oct, Anxiety associated with depression F41.8 ; Bronchitis J40 and Acute non-recurrent maxillary sinusitis J01.00 [facility] [address] [facility] [id number] 100[address] [place] [address] Oct, [address] [id number] VIEW, [place] [phone] Oct, [facility] [address] [id number] VIEW, [place] [address] Apr, Migraine without aura and with status mi grainosus, not intractable G43.001 ; Tension headache G44.209 ; Hyperlipemia E78.5 and Anxiety associated with depression F41.8 [facility] [address] [id number] [place]IEW[place] [address] Apr, Migraine without aura and with status mi grainosus, not intractable G43.001 ; Hyperlipemia E78.5 ; Tension headache G44.209 and Overweight E66.3 [facility] [address] [id number] VIEW, [place] [id number] Mar, [facility] [address] [address] [place] [address] AVE [id number] VIEW, [place] [id number] Oct, Acute upper respiratory infection, unspe cified J06.9 and Other viral agents as the cause of diseases classified elsewhere B97.89 [facility] [address] [id number] [place]IEW, [place] [id number] Sep, [facility] [address] [id number] VIEW, [place] [id number] Sep, [facility] [address] [id number] [place]IEW, [place] [phone] Sep, Acute right ankle pain M25.571 [facility] [address] [id number] VIEW, [place] [id number] Sep, [facility] [address] [id number] [place]IEW, [place] [address] Sep, Arachnoid cyst G93.0 and Migraine G43.90 9 [facility] [address] [id number] VIEW, [place] [id number] 17 Aug, 2016 Migraine G43.909 and Arachnoid cyst G93. 0 [facility] [id number] [place] [id number] Aug, [facility] [address] [facility] [address] [id number] [place] [id number] Aug, Anxiety associated with depression F41.8 ; Hyperlipemia E78.5 ; Arachnoid cyst G93.0 ; Tension headache G44.209 and Chronic maxillary sinusitis J32.0 [facility] [address] [place] [address] AVE [id number] [place] [id number] Jun, PTSD (post-traumatic stress disorder) F4 3.10 [facility] [address] [place] [address] AVE [id number] [place] [id number] Jun, Migraine without aura and with status mi grainosus, not intractable G43.001 [facility] [address] [id number] [place] [id number] Apr, Urinary tract infection, site unspecifie d N39.0 and Lung nodule seen on imaging study R91.1 [facility] [address] [place] [address] AVE [id number] [place] [id number] Mar, [facility] [address] [place] [address] [id number] [place] [id number] Mar, Tobacco use Z72.0 [facility] [address] [place] [address] AVE [id number] [place] [address] [id number] February, High cholesterol E78.0 [facility] [address] [place] [address] AVE [id number] [place] [id number] Jan, Migraine G43.909 and Adverse effect of c affeine T43.615A [facility] F[address] [facility] 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 [address] [id number] VIEW[place] [id number] Nov, Cervical high risk HPV (human papillomav irus) test positive R87.810 [facility] [address] [facility] [address] [id number] VIEW, [place] [id number] Nov, Anxiety associated with depression F41.8 ; Hyperlipemia E78.5 and Vaginal high risk HPV DNA test positive R87.811 [facility] [address] [facility] [id number] [place], [place] [address] Nov, [address] [id number] VIEW, [place] [id number] Oct, High cholesterol E78.[address] [id number] VIEW[place] [id number] Oct, Well woman exam Z01.419 ; Dysfunctional uterine bleeding N93.8 ; Screen for STD (sexually transmitted disease) Z11.3 ; Endometriosis N80.9 and Overweight E66.[address] [id number] VIEW, [place] [id number] Oct, Cough R05 ; Tobacco abuse Z72.0 and Toba senior accounting specialist abuse counseling Z71.[address] [id number] VIEW[place] [id number] Oct, Back pain M54.9 ; Cough R05 and Tobacco dependence F17.[address] [id number] VIEW, [place] [id number] Aug, Dysfunctional uterine bleeding N93.8 and Overweight E66.[address] [id number] VIEW, [place] [id number] Jul, Dysfunctional uterine bleeding N93.[address] [id number] VIEW, [place] [id number] Jul, Pelvic pain in female R10.2 and Dysfunct ional uterine bleeding N93.[address] [id number] [place] [id number] Jun, Abdominal pain 789.[address] [facility] [address] [facility] [address] [id number] [place] [id number] Apr, Right knee sprain 844.9 IMMUNIZATIONS No Known Immunizations SOCIAL HISTORY Never Assessed REASON FOR VISIT PLAN OF CARE VITAL SIGNS MEDICATIONS Medication Instructions Dosage Frequency Start Date End Date Duration S tatus Butalbital-APAP 50-325 MG Orally do not exceed 10 per week 1 tablet as needed Jan, 30 days Active RESULTS No Results PROCEDURES No Known procedures INSTRUCTIONS MEDICATIONS ADMINISTERED No Known Medications MEDICAL (GENERAL) HISTORY Type Description Date Medical History Adenomyosis- US 2013 showed large, boggy uterus Medical History scoliosis Medical History degenerative disease lumbosacral spine Medical History diverticulitis Medical History sciatica Medical History reverse curvature of C spine Medical History Anxiety/Depression Medical History PFT 02/2016- Normal Medical History Lung nodules per CT chest 04/2016- repeat in Oct [address] Head 07/18/16 Arachnoid cyst Medical History CT lumbar spine 03/2017- Mild spondylosis , nephrolithiasis Medical History Seizures hx since childhood. Surgical History hernia repair 11/02/2008 Surgical History tubal ligation 08/03/2014 Hospitalization History childbirth only Hospitalization History Hospitalization History via [facility] for migraines 10/2018 Hospitalization History [facility] for urination problem s 05/2019
--- OUTSIDE RECORDS SUMMARY | 2020-05-17 17:38 | XMS REPORT ---
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 Preparatory Operator Name Role Phone NIKKI MATOS Unavailable PROBLEMS Type Condition ICD9-CM Code EBK24-FI Code Onset Dates Condition S tatus SNOMED Code Problem Overweight E66.3 Active 296173289 Problem Tobacco abuse Z72.0 Active 574705 05 Problem Tobacco abuse counseling Z71.6 Activ e 758022496 Problem Anxiety associated with depression F41.8 Active 393398029 Problem Hyperlipemia E78.5 Active 8013929 4 Problem PTSD (post-traumatic stress disorder) F43.10 Active 53292939 Problem Chronic maxillary sinusitis J32.0 Ac tive 47672682 Problem Tension headache G44.209 Active 398 524483 Problem Bladder spasms N32.89 Active 29073 7006 Problem Tobacco use Z72.0 Active 79114562 0 Problem Bee sting allergy Z91.030 Active 42 5070897 Problem Migraine G43.909 Active 49436458 Problem Arachnoid cyst G93.0 Active 33175 009 Problem Allergic rhinitis, unspecified seasonality, unspecifie d trigger J30.9 Active 43603601 Problem Sleep disturbance G47.9 Active 53 406982 Problem Unspecified episodic mood disorder F39 Active 64302730321826 ALLERGIES No Information ENCOUNTERS Encounter Location Date Diagnosis [facility] [address] [facility] [id number] [address] [place] [id number] 25 Nov, 2019 Dental examination Z01.20 an d Caries K02.9 [facility] [address] [facility] [id number] [place] [phone] 14 Nov, 2019 Acute swimmer's ear of left side H60.332 [facility] [address] [facility] [id number] [place], [place] [address] Oct, Screening for STD (sexually transmitted disease) Z11.3 ; Galactorrhea of right breast N64.3 and Elevated ALT measurement R74.0 [facility] [address] [id number] [address] [place] [id number] Oct, Periodontitis K05.30 [facility] [place] [address] [id number] [address] [place] [id number] Oct, Dental examination Z01.20 ; Periodontitis K05.30 and Caries K02.9 [facility] [place] [id number] [place] [address] Sep, Well woman exam with routine gynecological exam Z01.419 ; Screening for STD (sexually transmitted disease) Z11.3 ; Galactorrhea of right breast N64.3 and Elevated ALT measurement R74.0 [facility] [id number] [place] [id number] Aug, Dental examination Z01.20 an d Caries K02.9 [facility] [place] [address] [place] [address] Aug, Bee sting allergy Z91.030 [facility] [place] [address] [place] [address] Aug, Encounter for immunization Z23 [facility] [place] [facility] [id number] [place] [address] Aug, Allergic rhinitis, unspecified seasonality, unspecified trigger J30.9 [facility] [place] [id number] [place] [address] Jul, [facility] [place] [address] [address] Jul, Insect bite (nonvenomous) of right upper arm, initial encounter S40.861A ; Bitten or stung by nonvenomous insect and other nonvenomous arthropods, initial encounter W57.XXXA and Encounter for immunization Z23 [facility] [place] [id number] [place], [place] [address] Jul, Unspecified episodic mood disorder F39 [facility] [place] [facility] [address] [id number] [address] Jun, Migraine G43.909 ; Sleep disturbance G47.9 ; Anxiety associated with depression F41.8 and Hyperlipemia E78.5 [facility] [address] [id number] [id number] May, [facility] [address] [facility] [address] [id number][place] [id number] May, [facility] [place] [address] [facility] [id number] [place] [address] May, Dysuria R30.0 [facility] [address] [facility] [id number] [address] [place] [address] May, Bladder spasms N32.89 [facility] [address] [facility] [id number] [address] [place] [address] May, Urinary tract infection with out hematuria, site unspecified N39.0 and Dysuria R30.0 [facility] [address] [id number], [place] [id number] Apr, [facility] [place] [address] [facility] [id number] [address] [place] [address] Apr, Unspecified episodic mood di sorder F39 [facility] [address] [facility] [address] [id number][place] [id number] Apr, Unspecified episodic mood disorder F39 ; Anxiety associated with depression F41.8 ; Nipple discharge N64.52 ; Adverse effect of unspecified drugs, medicaments and biological substances, initial encounter T50.905A and Hypertrophy of breast N62 [facility] [place] [address] [facility] [id number] [place] [address] Apr, Nipple discharge in female N64.52 [facility] [address] [id number], [place] [id number] Apr, Anxiety associated with depression F41.8 [facility] [address] [facility] [id number], [place] [id number] Mar, [facility] TANI Larson[address] [facility] [id number], [place] [id number] Mar, Seizures R56.9 and Anxiety associated wi depression F41.[address] [facility] [address] [id number][place] [id number] February, Anxiety associated with depression F41.8 and Seizure-like activity R56.9 [facility] [address] [place] [address] AVE [id number], [place] [id number] Jan, Migraine without aura and with status mi grainosus, not intractable G43.001 [facility] [address] [id number], [place] [id number] Jan, Migraine without aura and with status mi grainosus, not intractable G43.001 [facility] [address] [id number], [place] [id number] Dec, PTSD (post-traumatic stress disorder) F4 3.10 ; Anxiety associated with depression F41.8 ; Migraine G43.909 ; Sleep disturbance G47.9 ; History of seizure Z87.898 ; Hyperlipemia E78.5 and Allergic rhinitis, unspecified seasonality, unspecified trigger J30.9 [facility] [address] [id number][place] [id number] Nov, Migraine without aura and with status mi grainosus, not intractable G43.001 [facility] [address] [id number], [place] [id number] Nov, Hyperlipemia E78.5 [facility] [place] [address] [facility] [id number] [place], [place] [address] Nov, Hyperlipemia E78.5 and Overw eight E66.3 [facility] [address] [id number], [place] [id number] Oct, [facility] [address] [id number], [place] [id number] Oct, Anxiety associated with depression F41.8 ; Bronchitis J40 and Acute non-recurrent maxillary sinusitis J01.00 [facility] [address] [facility] [id number] 100[place] [address] Oct, [address] [id number], [place] [id number] Oct, [facility] [address] [id number], [place] [id number] Apr, Migraine without aura and with status mi grainosus, not intractable G43.001 ; Tension headache G44.209 ; Hyperlipemia E78.5 and Anxiety associated with depression F41.8 [facility] [address] [id number], [place] [id number] Apr, Migraine without aura and with status mi grainosus, not intractable G43.001 ; Hyperlipemia E78.5 ; Tension headache G44.209 and Overweight E66.3 [facility] [address] [id number], [place] [id number] Mar, [facility] [address] [place] [address] AVE [id number], [place] [id number] Oct, Acute upper respiratory infection, unspe cified J06.9 and Other viral agents as the cause of diseases classified elsewhere B97.89 [facility] [address] [id number], [place] [id number] Sep, [facility] [address] [id number], [place] [id number] Sep, [facility] [address] [id number], [place] [id number] Sep, Acute right ankle pain M25.571 [facility] [address] [id number], [place] [id number] Sep, [facility] [address] [id number], [place] [id number] Sep, Arachnoid cyst G93.0 and Migraine G43.90 9 [facility] [address] [id number], [place] [id number] 17 Aug, 2016 Migraine G43.909 and Arachnoid cyst G93. 0 [facility] [id number] [place] [id number] Aug, [facility] [address] [facility] AVE [id number] [place] [id number] Aug, Anxiety associated with depression F41.8 ; Hyperlipemia E78.5 ; Arachnoid cyst G93.0 ; Tension headache G44.209 and Chronic maxillary sinusitis J32.0 [facility] [address] [place] [address] AVE [id number] [place] [address] [id number] Jun, PTSD (post-traumatic stress disorder) F4 3.10 [facility] [address] [place] [address] AVE [id number] [place] [address] [id number] Jun, Migraine without aura and with status mi grainosus, not intractable G43.001 [facility] [address] [id number] [place] [id number] Apr, Urinary tract infection, site unspecifie d N39.0 and Lung nodule seen on imaging study R91.1 [facility] [address] [place] [address] AVE [id number] [place] [address] [id number] Mar, [facility] [place] [place] [address] AVE [id number] [place] [address] [id number] Mar, Tobacco use Z72.0 [facility] [address] [place] [address] AVE [id number] [place] [address] [id number] February, High cholesterol E78.0 [facility] [address] [place] [address] AVE [id number] [place] [id number] Jan, Migraine G43.909 and Adverse effect of c affeine T43.615A [facility] [address] [facility] [id number] [place] [id number] Dec, Bronchitis J40 ; Migraine G43.909 ; [employer]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 [address] [facility] [id number], [place] [id number] Nov, Anxiety associated with depression F41.8 ; Hyperlipemia E78.5 and Vaginal high risk HPV DNA test positive R87.811 [facility] [address] [facility] [id number] [place], [place] [address] Nov, [address] [id number], [place] [id number] Oct, High cholesterol E78.[address] [id number][place] [id number] Oct, Well woman exam Z01.419 ; Dysfunctional uterine bleeding N93.8 ; Screen for STD (sexually transmitted disease) Z11.3 ; Endometriosis N80.9 and Overweight E66.[address] [id number], [place] [id number] Oct, Cough R05 ; Tobacco abuse Z72.0 and [employer] corporate account 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 abuse 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 Z71.[address] [id number], [place] [id number] Oct, Back pain M54.9 ; Cough R05 and Tobacco dependence F17.[address] [id number], [place] [id number] Aug, Dysfunctional uterine bleeding N93.8 and Overweight E66.[address] [id number], [place] [id number] Jul, Dysfunctional uterine bleeding N93.[address] [id number], [place] [id number] Jul, Pelvic pain in female R10.2 and Dysfunct ional uterine bleeding N93.[address] [id number] [place] [id number] Jun, Abdominal pain 789.00 [facility] TANI Turcios [facility] [id number] [place] [id number] Apr, Right knee sprain 844.9 IMMUNIZATIONS No Known Immunizations SOCIAL HISTORY Never Assessed REASON FOR VISIT Med request PLAN OF CARE VITAL SIGNS MEDICATIONS Medication Instructions Dosage Frequency Start Date End Date Duration S tat Fioricet 50-300-40 MG Orally every 4 hrs as needed for headaches NOT TO EXCEED 10 PER WEEK 1 capsule Active RESULTS No Results PROCEDURES No Known [...] childbirth only Hospitalization History Hospitalization History via [facility] for migraines 10/2018 Hospitalization History Via [facility] ER for urination problem s 05/2019
--- OUTSIDE RECORDS SUMMARY | 2020-05-17 17:39 | XMS REPORT | Continuity of Care Document ---
Author Organization Unknown Address Unknown Phone Unavailable Allergies Active Description Code Type Severity Reaction Onset Reported/Identified Relationship to Patient Clinical Status Yes No Known Drug Allergies [id number] Drug Allergy Unknown N/A 10/19/2017 Medications There is no data. Problems Date Dx Coded Attending Type Code Diagnosis Diagnosed By 10/19/2017 ROBINSON LUCERO, JEM Stark Ot G43.909 MIGRAINE, UNSP, NOT INTRACTABLE, WITHOUT 10/19/2017 ROBINSON LUCERO, JEM Stark Ot R51 HEADACHE 10/19/2017 JEM BOWERS MD Ot Z98.51 TUBAL LIGATION STATUS 10/26/2017 JEM BOWERS MD Ot G43.909 MIGRAINE, UNSP, NOT INTRACTABLE, WITHOUT 10/26/2017 JEM BOWERS MD Ot R51 HEADACHE 10/26/2017 JEM BOWERS MD Ot Z98.51 TUBAL LIGATION STATUS 12/01/2018 LUIS VAZQUEZ DO Ot F12.10 CANNABIS ABUSE, UNCOMPLICATED 12/01/2018 LUIS VAZQUEZ DO Ot F17.210 NICOTINE DEPENDENCE, CIGARETTES, UNCOMPL 12/01/2018 LUIS VAZQUEZ DO Ot F41.9 ANXIETY DISORDER, UNSPECIFIED 12/01/2018 LUIS VAZQUEZ DO Ot G40.909 EPILEPSY, UNSP, NOT INTRACTABLE, WITHOUT 12/01/2018 LUIS VAZQUEZ DO Ot M41.9 SCOLIOSIS, UNSPECIFIED 12/01/2018 LUIS VAZQUEZ DO Ot R51 HEADACHE 12/01/2018 LUIS VAZQUEZ DO Ot Z86.69 PERSONAL HISTORY OF DIS OF THE NERVOUS S 12/01/2018 LUIS VAZQUEZ DO Ot Z87.19 PERSONAL HISTORY OF OTHER DISEASES OF TH 12/01/2018 LUIS VAZQUEZ DO Ot Z87.448 PERSONAL HISTORY OF OTHER DISEASES OF UR 12/01/2018 LUIS VAZQUEZ DO Ot Z98.51 TUBAL LIGATION STATUS 12/01/2018 LUIS VAZQUEZ DO Ot Z98.890 OTHER SPECIFIED POSTPROCEDURAL STATES 06/08/2019 JEM BOWERS MD Ot F17.210 NICOTINE DEPENDENCE, CIGARETTES, UNCOMPL 06/08/2019 JEM BOWERS MD Ot F41.9 ANXIETY DISORDER, UNSPECIFIED 06/08/2019 JEM BOWERS MD Ot G40.909 EPILEPSY, UNSP, NOT INTRACTABLE, WITHOUT 06/08/2019 JEM BOWERS MD Ot N39.0 URINARY TRACT INFECTION, SITE NOT SPECIF 06/08/2019 JEM BOWERS MD Ot R25.2 CRAMP AND SPASM 06/08/2019 JEM BOWERS MD Ot R51 HEADACHE 06/08/2019 JEM BOWERS MD Ot Z86.69 PERSONAL HISTORY OF DIS OF THE NERVOUS S 06/08/2019 JEM BOWERS MD Ot Z87.19 PERSONAL HISTORY OF OTHER DISEASES OF TH 06/08/2019 JEM BOWERS MD Ot Z91.14 PATIENT'S OTHER NONCOMPLIANCE WITH MEDIC 06/08/2019 JEM BOWERS MD Ot Z98.51 TUBAL LIGATION STATUS 06/08/2019 JEM BOWERS MD Ot Z98.890 OTHER SPECIFIED POSTPROCEDURAL STATES 06/11/2019 JEM BOWERS MD Ot F17.210 NICOTINE DEPENDENCE, CIGARETTES, UNCOMPL 06/11/2019 JEM BOWERS MD Ot F41.9 ANXIETY DISORDER, UNSPECIFIED 06/11/2019 JEM BOWERS MD Ot G40.909 EPILEPSY, UNSP, NOT INTRACTABLE, WITHOUT 06/11/2019 JEM BOWERS MD Ot N39.0 URINARY TRACT INFECTION, SITE NOT SPECIF 06/11/2019 JEM BOWERS MD Ot R25.2 CRAMP AND SPASM 06/11/2019 JEM BOWERS MD Ot R51 HEADACHE 06/11/2019 JEM BOWERS MD Ot Z86.69 PERSONAL HISTORY OF DIS OF THE NERVOUS S 06/11/2019 ROBINSON LUCERO, JEM Stark Ot Z87.19 PERSONAL HISTORY OF OTHER DISEASES OF 06/11/2019 ROBINSON LUCERO, JEM Stark Ot Z91.14 PATIENT'S OTHER NONCOMPLIANCE WITH MEDIC 06/11/2019 JEM BOWERS MD Ot Z98.51 TUBAL LIGATION STATUS 06/11/2019 JEM BOWERS MD Ot Z98.890 OTHER SPECIFIED POSTPROCEDURAL STATES 06/16/2019 JAVIER VINES APRN Ot F17.210 NICOTINE DEPENDENCE, CIGARETTES, UNCOMPL 06/16/2019 JAVIER VINES APRN Ot F41 .9 ANXIETY DISORDER, UNSPECIFIED 06/16/2019 JAVIER VINES APRN Ot G40.909 EPILEPSY, UNSP, NOT INTRACTABLE, WITHOUT 06/16/2019 JAVIER VINES APRN Ot G43.909 MIGRAINE, UNSP, NOT INTRACTABLE, WITHOUT 06/16/2019 JAVIER VINES APRN Ot R33 .9 RETENTION OF URINE, UNSPECIFIED 06/16/2019 JAVIER VINES APRN Ot Z87.19 PERSONAL HISTORY OF OTHER DISEASES OF 06/16/2019 JAVIER VINES APRN Ot Z98.51 TUBAL LIGATION STATUS 06/16/2019 JAVIER VINES APRN Ot Z98.890 OTHER SPECIFIED POSTPROCEDURAL STATES 06/16/2019 JAVIER VINES APRN Ot F17.210 NICOTINE DEPENDENCE, CIGARETTES, UNCOMPL 06/16/2019 JAVIER VINES APRN Ot F41 .9 ANXIETY DISORDER, UNSPECIFIED 06/16/2019 JAVIER VINES APRN Ot G40.909 EPILEPSY, UNSP, NOT INTRACTABLE, WITHOUT 06/16/2019 JAVIER VINES APRN Ot G43.909 MIGRAINE, UNSP, NOT INTRACTABLE, WITHOUT 06/16/2019 JAVIER VINES APRN Ot R33 .9 RETENTION OF URINE, UNSPECIFIED 06/16/2019 JAVIER VINES APRN Ot Z87.19 PERSONAL HISTORY OF OTHER DISEASES OF 06/16/2019 JAVIER VINES APRN Ot Z98.51 TUBAL LIGATION STATUS 06/16/2019 JAVIER VINES APRN Ot Z98.890 OTHER SPECIFIED POSTPROCEDURAL STATES Procedures There is no data. Results Test Result Range Urine drug screening test - 11/28/18 20: 34 Urine phencyclidine detection by screening method NEGATIVE NEGATIVE Urine benzodiazepines detection by screening method NEGATIVE NEGATIVE Urine cocaine detection NEGATIVE NEGATI VE Urine amphetamines detection by screening method N EGATIVE NEGATIVE Urine methamphetamine detection by screening method NEGATIVE NEGATIVE Urine cannabinoids detection by screening method N EGATIVE NEGATIVE Urine opiates detection by screening method NEGATI VE NEGATIVE Urine barbiturates detection NEGATIVE N EGATIVE Screening urine tricyclic antidepressants detection NEGATIVE NEGATIVE Urine methadone detection by screening method NEGA TIVE NEGATIVE Urine oxycodone detection NEGATIVE NEGA TIVE Urine propoxyphene detection NEGATIVE N EGATIVE TSH w/ FREE T4 - 05/10/19 13:48 TSH 1.03 mIU/L NRG T4, FREE 1.2 ng/dL 0.8-1.8 PROLACTIN - 05/10/19 13:48 PROLACTIN 6.3 ng/mL NRG TEST, SERUM (QUAL) - 05/10/19 13:48 HCG, TOTAL, QL NEGATIVE See Note: Complete urinalysis with reflex to cultu re - 06/08/19 18:08 Urine color determination YELLOW NRG Urine clarity determination CLEAR NR G Urine pH measurement by test strip 5 5-9 Specific gravity of urine by test strip 1.020 1.016-1.022 Urine protein assay by test strip, semi-quantitative 1+ NEGATIVE Urine glucose detection by automated test strip NE GATIVE NEGATIVE Erythrocytes detection in urine sediment by light micr oscopy NEGATIVE NEGATIVE Urine ketones detection by automated test strip 1+ NEGATIVE Urine nitrite detection by test strip NEGATIVE NEGATIVE Urine total bilirubin detection by test strip NEGA TIVE NEGATIVE Urine urobilinogen measurement by automated test strip (mass/volume) 4 mg/dL NORMAL Urine leukocyte esterase detection by dipstick 2+ NEGATIVE Automated urine sediment erythrocyte cou nt by microscopy (number/high power field) NONE NRG Automated urine sediment leukocyte count by microscopy (number/high power field) [HPF] NRG Bacteria detection in urine sediment by light microsco py MODERATE NRG Squamous epithelial cells detection in u rine sediment by light microscopy 25-50 NRG Crystals detection in urine sediment by light microsco py NONE NRG Casts detection in urine sediment by light microscopy NONE NRG Mucus detection in urine sediment by light microscopy NEGATIVE NRG Complete urinalysis with reflex to culture YES NRG Bacterial urine culture - 06/08/19 18:08 Bacterial urine culture 3 OR MORE NRG COLONY COUNT 80,000 CFU/ML NRG FTX;REPORTABLE SUGGESTING PROBABLE COLLECTION NRG FREE TEXT ENTRY 2 CONTAMINATION WITH SKIN VANIA NRG FREE TEXT ENTRY 3 NO SUSCEPTIBILITY PERFORMED NRG Complete blood count (CBC) with automate d white blood cell (WBC) differential - 06/08/19 18:26 Blood leukocytes automated count (number/volume) 9.6 10*3/uL 4.3-11.0 Blood erythrocytes automated count (number/volume) 4.73 10*6/uL 4.35-5.85 Venous blood hemoglobin measurement (mass/volume) 14.1 g/dL 11.5-16.0 Blood hematocrit (volume fraction) 41 % 35-52 Automated erythrocyte mean corpuscular volume 87 [ foz_us] 80-99 Automated erythrocyte mean corpuscular h emoglobin (mass per erythrocyte) 30 pg 25-34 Automated erythrocyte mean corpuscular h emoglobin concentration measurement (mass/volume) 35 g/dL 32-36 Automated erythrocyte distribution width ratio 14. 0 % 10.0- 14.5 Automated blood platelet count (count/volume) 340 10*3/uL 130-400 Automated blood platelet mean volume measurement 9.6 [foz_us] 7.4-10.4 Automated blood neutrophils/100 leukocytes 65 % 42-75 Automated blood lymphocytes/100 leukocytes 25 % 12-44 Blood monocytes/100 leukocytes 9 % 0-12 Automated blood eosinophils/100 leukocytes 1 % 0-10 Automated blood basophils/100 leukocytes 0 % 0-10 Blood neutrophils automated count (number/volume) 6.2 10*3 1.8-7.8 Blood lymphocytes automated count (number/volume) 2.4 10*3 1.0-4.0 Blood monocytes automated count (number/volume) 0. 9 10*3 0.0-1.0 Automated eosinophil count 0.1 10*3/uL 0 .0-0.3 Automated blood basophil count (count/volume) 0.0 10*3/uL 0.0-0.1 Whole blood basic metabolic panel - 05/27 01/12 18:26 Serum or plasma sodium measurement (moles/volume) 140 mmol/L 135-145 Serum or plasma potassium measurement (moles/volume) 3.9 mmol/L 3.6-5.0 Serum or plasma chloride measurement (moles/volume) 112 mmol/L 98-107 Carbon dioxide 18 mmol/L 21-32 Serum or plasma anion gap determination (moles/volume) 10 mmol/L 5-14 Serum or plasma urea nitrogen measurement (mass/volume ) 13 mg/dL 7-18 Serum or plasma creatinine measurement (mass/volume) 0.88 mg/dL 0.60-1.30 Serum or plasma urea nitrogen/creatinine mass ratio 15 NRG Serum or plasma creatinine measurement w ith calculation of estimated glomerular filtration rate > NRG Serum or plasma glucose measurement (mass/volume) 89 mg/dL 70-105 Serum or plasma calcium measurement (mass/volume) 9.3 mg/dL 8.5-10.1 Magnesium - 06/08/19 18:26 Magnesium 2.1 mg/dL 1.6-2.4 Urine beta human chorionic gonadotropin (hCG) measurement - 06/14/19 16:10 Urine beta human chorionic gonadotropin (hCG) measurem ent NEGATIVE NEGATIVE Urine drug screening test - 06/14/19 16: 10 Urine phencyclidine detection by screening method NEGATIVE NEGATIVE Urine benzodiazepines detection by screening method POSITIVE NEGATIVE Urine cocaine detection NEGATIVE NEGATI VE Urine amphetamines detection by screening method N EGATIVE NEGATIVE Urine methamphetamine detection by screening method NEGATIVE NEGATIVE Urine cannabinoids detection by screening method N EGATIVE NEGATIVE Urine opiates detection by screening method NEGATI VE NEGATIVE Urine barbiturates detection NEGATIVE N EGATIVE Screening urine tricyclic antidepressants detection NEGATIVE NEGATIVE Urine methadone detection by screening method NEGA TIVE NEGATIVE Urine oxycodone detection NEGATIVE NEGA TIVE Urine propoxyphene detection NEGATIVE N EGATIVE Complete urinalysis with reflex to cultu re - 06/14/19 16:10 Urine color determination YELLOW NRG Urine clarity determination CLEAR NR G Urine pH measurement by test strip 6.5 5-9 Specific gravity of urine by test strip 1.005 1.016-1.022 Urine protein assay by test strip, semi-quantitative NEGATIVE NEGATIVE Urine glucose detection by automated test strip NE GATIVE NEGATIVE Erythrocytes detection in urine sediment by light micr oscopy NEGATIVE NEGATIVE Urine ketones detection by automated test strip NE GATIVE NEGATIVE Urine nitrite detection by test strip NEGATIVE NEGATIVE Urine total bilirubin detection by test strip NEGA TIVE NEGATIVE Urine urobilinogen measurement by automated test strip (mass/volume) NORMAL NORMAL Urine leukocyte esterase detection by dipstick NEG ATIVE NEGATIVE Automated urine sediment erythrocyte cou nt by microscopy (number/high power field) NONE NRG Automated urine sediment leukocyte count by microscopy (number/high power field) RARE NRG Bacteria detection in urine sediment by light microsco py TRACE NRG Squamous epithelial cells detection in u rine sediment by light microscopy 0-2 NRG Crystals detection in urine sediment by light microsco py NONE NRG Casts detection in urine sediment by light microscopy NONE NRG Mucus detection in urine sediment by light microscopy NEGATIVE NRG Complete urinalysis with reflex to culture NO NRG Complete blood count (CBC) with automate d white blood cell (WBC) differential - 06/14/19 16:28 Blood leukocytes automated count (number/volume) 8.5 10*3/uL 4.3-11.0 Blood erythrocytes automated count (number/volume) 4.55 10*6/uL 4.35-5.85 Venous blood hemoglobin measurement (mass/volume) 13.3 g/dL 11.5-16.0 Blood hematocrit (volume fraction) 40 % 35-52 Automated erythrocyte mean corpuscular volume 88 [ foz_us] 80-99 Automated erythrocyte mean corpuscular h emoglobin (mass per erythrocyte) 29 pg 25-34 Automated erythrocyte mean corpuscular h emoglobin concentration measurement (mass/volume) 33 g/dL 32-36 Automated erythrocyte distribution width ratio 14. 5 % 10.0- 14.5 Automated blood platelet count (count/volume) 325 10*3/uL 130-400 Automated blood platelet mean volume measurement 9.3 [foz_us] 7.4-10.4 Automated blood neutrophils/100 leukocytes 65 % 42-75 Automated blood lymphocytes/100 leukocytes 25 % 12-44 Blood monocytes/100 leukocytes 9 % 0-12 Automated blood eosinophils/100 leukocytes 2 % 0-10 Automated blood basophils/100 leukocytes 0 % 0-10 Blood neutrophils automated count (number/volume) 5.5 10*3 1.8-7.8 Blood lymphocytes automated count (number/volume) 2.1 10*3 1.0-4.0 Blood monocytes automated count (number/volume) 0. 8 10*3 0.0-1.0 Automated eosinophil count 0.1 10*3/uL 0 .0-0.3 Automated blood basophil count (count/volume) 0.0 10*3/uL 0.0-0.1 Whole blood basic metabolic panel - 05/27 07/15 16:28 Serum or plasma sodium measurement (moles/volume) 141 mmol/L 135-145 Serum or plasma potassium measurement (moles/volume) 3.5 mmol/L 3.6-5.0 Serum or plasma chloride measurement (moles/volume) 112 mmol/L 98-107 Carbon dioxide 22 mmol/L 21-32 Serum or plasma anion gap determination (moles/volume) 7 mmol/L 5-14 Serum or plasma urea nitrogen measurement (mass/volume ) 7 mg/dL 7-18 Serum or plasma creatinine measurement (mass/volume) 0.82 mg/dL 0.60-1.30 Serum or plasma urea nitrogen/creatinine mass ratio 9 NRG Serum or plasma creatinine measurement w ith calculation of estimated glomerular filtration rate > NRG Serum or plasma glucose measurement (mass/volume) 101 mg/dL 70-105 Serum or plasma calcium measurement (mass/volume) 9.0 mg/dL 8.5-10.1 CULTURE, URINE - 06/18/19 14:16 CULTURE, URINE, ROUTINE NRG LIPID PANEL - 06/29/19 13:10 CHOLESTEROL, TOTAL 167 mg/dL <200 HDL CHOLESTEROL 32 mg/dL >50 TRIGLYCERIDES 162 mg/dL <150 LDL-CHOLESTEROL 107 mg/dL (calc) NRG CHOL/HDLC RATIO 5.2 (calc) <5.0 NON HDL CHOLESTEROL 135 mg/dL (calc) <13 0 SUREPATH PAP AND HPV mRNA E6/E7 - 17:36 CLINICAL INFORMATION: NRG LMP: 10/13/2019 NRG PREV. PAP: 11/23/2015 NRG PREV. BX: NRG SOURCE: Vagina NR STATEMENT OF ADEQUACY: NR INTERPRETATION/RESULT: NRG SURVEILLANCE CAMERA TECHNICIAN: NRG HPV mRNA E6/E7, SUREPATH VIAL Not Detected NOT DETECTED REVIEW SURVEILLANCE CAMERA TECHNICIAN: NRG COMMENT NRG TSH w/ FREE T4 - 11/17/19 10:07 TSH 1.91 mIU/L NRG T4, FREE 1.1 ng/dL 0.8-1.8 HEPATITIS PROFILE - 11/17/19 10:07 HEPATITIS A IGM NON-REACTIVE NON-REACTI VE HEPATITIS B SURFACE ANTIGEN NON-REACTIVE NON-REACTIVE HEPATITIS B CORE ANTIBODY (IGM) NON-REACTIVE NON-REACTIVE HEPATITIS C ANTIBODY NON-REACTIVE NON-R EACTIVE SIGNAL TO CUT-OFF 0.01 <1.00 CMP - 11/17/19 10:07 GLUCOSE 89 mg/dL 65-99 UREA NITROGEN (BUN) 21 mg/dL 7-25 CREATININE 0.79 mg/dL 0.50-1.10 eGFR NON-AFR. BURMESE 96 mL/min/1.73m2 > OR = 60 eGFR 111 mL/min/1.73m2 > OR = 60 BUN/CREATININE RATIO NOT APPLICABLE (calc) 6-22 SODIUM 142 mmol/L 135-146 POTASSIUM 4.3 mmol/L 3.5-5.3 CHLORIDE 111 mmol/L 98-110 CARBON DIOXIDE 23 mmol/L 20-32 CALCIUM 9.1 mg/dL 8.6-10.2 PROTEIN, TOTAL 6.4 g/dL 6.1-8.1 ALBUMIN 4.4 g/dL 3.6-5.1 GLOBULIN 2.0 g/dL (calc) 1.9-3.7 ALBUMIN/GLOBULIN RATIO 2.2 (calc) 1.0-2. 5 BILIRUBIN, TOTAL 0.3 mg/dL 0.2-1.2 ALKALINE PHOSPHATASE 71 U/L 33-115 AST 12 U/L 10-30 ALT 9 U/L 6-29 PROLACTIN - 11/17/19 10:07 PROLACTIN 6.2 ng/mL NRG HCG, QUAL REFLEX TO QUANT - 03/01/20 11: 54 HCG, TOTAL, QL NEGATIVE See Note: Complete urinalysis with reflex to cultu re - 05/17/20 15:51 Urine color determination YELLOW NRG Urine clarity determination CLEAR NR G Urine pH measurement by test strip 5.5 5-9 Specific gravity of urine by test strip >= 1.016-1.022 Urine protein assay by test strip, semi-quantitative NEGATIVE NEGATIVE Urine glucose detection by automated test strip NE GATIVE NEGATIVE Erythrocytes detection in urine sediment by light micr oscopy NEGATIVE NEGATIVE Urine ketones detection by automated test strip NE GATIVE NEGATIVE Urine nitrite detection by test strip NEGATIVE NEGATIVE Urine total bilirubin detection by test strip NEGA TIVE NEGATIVE Urine urobilinogen measurement by automated test strip (mass/volume) 0.2 mg/dL < = 1.0 Urine leukocyte esterase detection by dipstick NEG ATIVE NEGATIVE Automated urine sediment erythrocyte cou nt by microscopy (number/high power field) NONE NRG Automated urine sediment leukocyte count by microscopy (number/high power field) RARE NRG Bacteria detection in urine sediment by light microsco py TRACE NRG Squamous epithelial cells detection in u rine sediment by light microscopy 2-5 NRG Crystals detection in urine sediment by light microsco py NONE NRG Casts detection in urine sediment by light microscopy NONE NRG Mucus detection in urine sediment by light microscopy NEGATIVE NRG Complete urinalysis with reflex to culture NO NRG Urine drug screening test - 05/17/20 15: 51 Urine phencyclidine detection by screening method NEGATIVE NEGATIVE Urine benzodiazepines detection by screening method NEGATIVE NEGATIVE Urine cocaine detection NEGATIVE NEGATI VE Urine amphetamines detection by screening method P OSITIVE NEGATIVE Urine methamphetamine detection by screening method POSITIVE NEGATIVE Urine cannabinoids detection by screening method P OSITIVE NEGATIVE Urine opiates detection by screening method NEGATI VE NEGATIVE Urine barbiturates detection NEGATIVE N EGATIVE Screening urine tricyclic antidepressants detection NEGATIVE NEGATIVE Urine methadone detection by screening method NEGA TIVE NEGATIVE Urine oxycodone detection NEGATIVE NEGA TIVE Urine propoxyphene detection NEGATIVE N EGATIVE Complete blood count (CBC) with automate d white blood cell (WBC) differential - 05/17/20 16:22 Blood leukocytes automated count (number/volume) 9.9 10*3/uL 4.3-11.0 Blood erythrocytes automated count (number/volume) 5.02 10*6/uL 4.35-5.85 Venous blood hemoglobin measurement (mass/volume) 14.8 g/dL 11.5-16.0 Blood hematocrit (volume fraction) 44 % 35-52 Automated erythrocyte mean corpuscular volume 88 [ foz_us] 80-99 Automated erythrocyte mean corpuscular h emoglobin (mass per erythrocyte) 30 pg 25-34 Automated erythrocyte mean corpuscular h emoglobin concentration measurement (mass/volume) 34 g/dL 32-36 Automated erythrocyte distribution width ratio 14. 5 % 10.0- 14.5 Automated blood platelet count (count/volume) 323 10*3/uL 130-400 Automated blood platelet mean volume measurement 9.7 [foz_us] 7.4-10.4 Automated blood neutrophils/100 leukocytes 64 % 42-75 Automated blood lymphocytes/100 leukocytes 26 % 12-44 Blood monocytes/100 leukocytes 8 % 0-12 Automated blood eosinophils/100 leukocytes 2 % 0-10 Automated blood basophils/100 leukocytes 0 % 0-10 Blood neutrophils automated count (number/volume) 6.4 10*3 1.8-7.8 Blood lymphocytes automated count (number/volume) 2.6 10*3 1.0-4.0 Blood monocytes automated count (number/volume) 0. 8 10*3 0.0-1.0 Automated eosinophil count 0.2 10*3/uL 0 .0-0.3 Automated blood basophil count (count/volume) 0.0 10*3/uL 0.0-0.1 Whole blood basic metabolic panel - 04/27 12/16 16:22 Serum or plasma sodium measurement (moles/volume) 141 mmol/L 135-145 Serum or plasma potassium measurement (moles/volume) 4.2 mmol/L 3.6-5.0 Serum or plasma chloride measurement (moles/volume) 106 mmol/L 98-107 Carbon dioxide 26 mmol/L 21-32 Serum or plasma anion gap determination (moles/volume) 9 mmol/L 5-14 Serum or plasma urea nitrogen measurement (mass/volume ) 10 mg/dL 7-18 Serum or plasma creatinine measurement (mass/volume) 0.85 mg/dL 0.60-1.30 Serum or plasma urea nitrogen/creatinine mass ratio 12 NRG Serum or plasma creatinine measurement w ith calculation of estimated glomerular filtration rate > NRG Serum or plasma glucose measurement (mass/volume) 82 mg/dL 70-105 Serum or plasma calcium measurement (mass/volume) 9.3 mg/dL 8.5-10.1 Encounters ACCT No. Visit Date/Time Discharge Status Pt. Type Provider Facility Loc./Unit Complaint [id number] 03/01/2020 10:40:00 03/01/2020 23:59: 59 CLS Outpatient KENNETH BRAVO [id number] 03/01/2020 10:40:00 Document Registration [id number] 11/17/2019 10:20:00 Document Registration [id number] 10/26/2019 16:00:00 Document Registration [id number] 06/29/2019 12:20:00 Document Registration [id number] 06/18/2019 13:40:00 Document Registration [id number] 05/10/2019 13:20:00 Document Registration [id number] 06/14/2019 15:31:00 019 17:30:00 DIS Outpatient JAVIER VINES APRN [facility] ER SENT BY [facility] TO [place] [id number] 06/08/2019 17:54:00 019 20:00:00 DIS Emergency ROBINSON LUCERO, JEM Stark [facility] ER FOOT Jarek MARI GÓMEZRICK [id number] 11/28/2018 19:07:00 019 21:43:00 DIS Outpatient LUIS VAZQUEZ DO [facility] ER MIGRAINE [id number] 10/19/2017 17:16:00 017 20:53:00 DIS Emergency ROBINSON LUCERO, JME Stark [facility] ER MIGRAINE [id number] 05/17/2020 16:23:00 Document Registration
[2020-05-17 18:42] VITALS: BP 123/49
== END 2020-05-17 18:44 | disposition home or self-care (01) ==
LOC: EDUNIT# 15:35 → ER 15:37
DX: R30.0 Dysuria (principal); F15.90 Other stimulant use, unspecified, uncomplicated
CPT/HCPCS: 36415; 51702; 74177; 80048; 80306; 81000; 85025; 96361; 96374

== ENCOUNTER 2022-06-19 17:40 | Emergency (ER) | payer SELFPAY ==
[~2022-06-19] VITALS: Ht 162.5 cm; Wt 73.9 kg
[~2022-06-19 17:40] MED LIST changes: +PHEN-826 PO
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
[2022-06-19] MEDS ORDERED: TETANUS,DIPTH,PERTUSS P/F (BOOSTRIX) 0.5 ML VIAL IM ONE (18:15)
[2022-06-19 18:23] LABS: BASOPHILS # (AUTO) 0.1 10^3/uL (0.0-0.1); BASOPHILS % (AUTO) 1 % (0-10); EOSINOPHILS # (AUTO) 0.1 10^3/uL (0.0-0.3); EOSINOPHILS % (AUTO) 1 % (0-10); HEMATOCRIT 41 % (35-52); HEMOGLOBIN 13.7 g/dL (11.5-16.0); LYMPHOCYTES % (AUTO) 20 % (12-44); MEAN CORPUSCULAR HEMOGLOBIN 29 pg (25-34); MEAN CORPUSCULAR HGB CONC 33 g/dL (32-36); MEAN CORPUSCULAR VOLUME 87 fL (80-99); MEAN PLATELET VOLUME 9.2 fL (9.0-12.2); MONOCYTES # (AUTO) 0.6 10^3/uL (0.0-1.0); MONOCYTES % (AUTO) 6 % (0-12); NEUTROPHILS % (AUTO) 72 % (42-75); PLATELET COUNT 346 10^3/uL (130-400); WHITE BLOOD COUNT 9.8 10^3/uL (4.3-11.0)
[2022-06-19 18:34] LABS: CHLORIDE 105 MMOL/L (98-107); POTASSIUM 4.2 MMOL/L (3.6-5.0); SODIUM 139 MMOL/L (135-145)
[2022-06-19 18:36] LABS: CALCIUM 9.3 MG/DL (8.5-10.1)
[2022-06-19 18:37] LABS: GLUCOSE 119 MG/DL (70-105); TOTAL PROTEIN 7.2 GM/DL (6.4-8.2)
[2022-06-19 18:38] LABS: CARBON DIOXIDE 24 MMOL/L (21-32)
[2022-06-19 18:39] LABS: BILIRUBIN,TOTAL 0.3 MG/DL (0.1-1.0)
[2022-06-19 18:40] LABS: ALKALINE PHOSPHATASE 60 U/L (40-136)
[2022-06-19 18:41] LABS: CREATININE SERUM 0.74 MG/DL (0.60-1.30); GFR ESTIMATED 105
[2022-06-19 18:42] LABS: BUN/CREATININE RATIO 9
[2022-06-19 18:43] LABS: ALANINE AMINOTRANSFERASE 12 U/L (0-55)
[2022-06-19 18:44] LABS: CREATINE KINASE 474 U/L (29-168)
[2022-06-19 18:50] LABS: CREATINE KINASE MB 1.2 NG/ML (<6.6)
--- NOTE | 2022-06-19 18:53 | Diagnostic Imaging Report ---
INDICATION: knee pain TECHNIQUE: 3 views of the left knee CORRELATION STUDY: None FINDINGS: The joint spaces are maintained. The articular surfaces are smooth and preserved. There is no acute bony abnormality. Soft tissues are unremarkable. IMPRESSION: 1. Negative for acute bony abnormality of the left knee. Dictated by: Dictated on workstation # [id number]
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
[2022-06-19 19:18] LABS: BILIRUBIN,URINE NEGATIVE (NEGATIVE); CLARITY,URINE CLEAR; COLOR,URINE YELLOW; GLUCOSE, URINE (UA) NEGATIVE (NEGATIVE); KETONES,URINE NEGATIVE (NEGATIVE); LEUKOCYTE ESTERASE ,URINE NEGATIVE (NEGATIVE); NITRITE,URINE NEGATIVE (NEGATIVE); PH,URINE 6.5 (5-9); PROTEIN,URINE NEGATIVE (NEGATIVE)
[2022-06-19] MEDS ORDERED: NAPR500T8 PO (19:22)
[2022-06-19] MEDS ORDERED: AMOX1TAB12 PO (19:22)
[2022-06-19] MEDS ORDERED: CYCL10TA25 PO (19:22)
[2022-06-19 19:30] LABS: AMPHETAMINE SCREEN, URINE POSITIVE (NEGATIVE); BACTERIA,URINE FEW /HPF; BARBITURATE SCREEN URINE NEGATIVE (NEGATIVE); BENZODIAZEPINES SCREEN URINE NEGATIVE (NEGATIVE); CANNABINOID SCREEN, URINE NEGATIVE (NEGATIVE); COCAINE SCREEN URINE NEGATIVE (NEGATIVE); METHADONE STAT NEGATIVE (NEGATIVE); OPIATE SCREEN URINE NEGATIVE (NEGATIVE); OXYCODONE STAT NEGATIVE (NEGATIVE); PROPOXYPHENE STAT NEGATIVE (NEGATIVE); TRICYCLIC ANTIDEPRESSANTS SCRE NEGATIVE (NEGATIVE)
[2022-06-19] MEDS ORDERED: KETOROLAC 30 MG/ML VIAL IVP ONE (19:30)
[2022-06-19 19:50] VITALS: BP 147/100
== END 2022-06-19 19:50 | disposition home or self-care (01) ==
LOC: EDUNIT# 17:40 → ER 17:43
DX: S02.2XXA Fracture of nasal bones, initial encounter for closed fracture (principal); S16.1XXA Strain of muscle, fascia and tendon at neck level, initial encounter; S80.02XA Contusion of left knee, initial encounter; R60.0 Localized edema; F17.210 Nicotine dependence, cigarettes, uncomplicated; Z23 Encounter for immunization; Z28.310 Unvaccinated for COVID-19; Y04.1XXA Assault by human bite, initial encounter
CPT/HCPCS: 70450; 70486; 72125; 73562; 80053; 80306; 81000; 82550; 82553; 83874; 84703 ×2; 85025; 87077; 87088; 90471; 96374; 99284; G0480; 36415; 80320; 90715

== ENCOUNTER 2023-04-29 19:30 | Emergency (ER) | payer SELFPAY ==
[~2023-04-29] VITALS: Ht 165 cm; Wt 71.6 kg
[~2023-04-29 19:30] MED LIST changes: +AMOX1TAB12 PO; +CYCL10TA25 PO; +NAPR500T8 PO
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
--- NOTE | 2023-04-29 19:52 | Diagnostic Imaging Report ---
INDICATION: Right hip injury AP view of the pelvis and 2 views of the right hip show no fracture or dislocation. IMPRESSION: Negative pelvis and right hip. Dictated by: Dictated on workstation # [id number]
[2023-04-29 20:27] VITALS: BP 115/86
== END 2023-04-29 20:28 | disposition home or self-care (01) ==
LOC: EDUNIT# 19:30 → ER 19:33
DX: S80.12XA Contusion of left lower leg, initial encounter (principal); S80.11XA Contusion of right lower leg, initial encounter; S40.022A Contusion of left upper arm, initial encounter; S40.021A Contusion of right upper arm, initial encounter; S79.911A Unspecified injury of right hip, initial encounter; F17.210 Nicotine dependence, cigarettes, uncomplicated; W10.9XXA Fall (on) (from) unspecified stairs and steps, initial encounter; Y92.009 Unspecified place in unspecified non-institutional (private) residence as the place of occurrence of the external cause

== ENCOUNTER → 2023-09-01 | Outpatient (CLI) | payer OTHER ==
--- NOTE | 2023-09-01 18:25 | Diagnostic Imaging Report ---
CLINICAL INDICATION: Patient with low back pain. EXAM: X-ray of the lumbar spine, 3 views. COMPARISONS: None. FINDINGS: There is no acute lumbar spine fracture or dislocation. There is lower lumbar spine facet arthropathy. Intervertebral disk heights are maintained. There is mild sclerosis of the sacroiliac joint regions. There are small spurs involving the lower lumbar spine. IMPRESSION: There is lumbar spine degenerative disease with no acute fracture or dislocation. Dictated by: Dictated on workstation # [id number]
== END ==
LOC: RAD 14:29
PROVIDERS: ATTEND Family Medicine
DX: Z02.71 Encounter for disability determination (principal); M51.36 Other intervertebral disc degeneration, lumbar region
CPT/HCPCS: 72100